=== PATIENT | male | born 1955 | race Caucasian/White ===

== ENCOUNTER 2019-08-23 21:29 | Observation (INO) | payer MEDICARE, MEDICAID, SELFPAY ==
[2019-08-23] VITALS (37 sets, daily range): BP systolic 105–138; BP diastolic 58–80; PULSE 62–91; RESP 14–26; TEMP 36.7; O2SAT 90–97
--- NOTE | 2019-08-23 21:39 | W.ED.GENAD ---
Discharge Plan Disposition Patient Disposition: [facility] INPATIENT Condition: Stable Discharge Details Chief Complaint: Chest Pain Clinical Impression: Chest pain Primary Care Provider: Candido Francis ED Provider: Jayro August Medical Decision Making 64-year-old male with no past medical history likely secondary to no physician evaluation in the past. He smokes, and he has a family history of massive myocardial infarctions at the age of 55 and his brother and his father. He presents for syncope and chest pain. Patient was ice fishing 1 hour ago when he passed out and after that he had notable tightness and pressure in his chest. Denies any tearing sensation. Exam is unremarkable. EKG shows minimal nonspecific less than a millimeter ST elevation in V1 V2 and V3. No evidence of STEMI. Symptoms are certainly concerning for cardiac etiology. Differential also includes dissection versus PE with his syncope. However he likely had a syncopal episode secondary to what I would suspect would be a cardiac dysrhythmia. Will monitor closely, evaluate for these acute etiologies, and recommend admission. Bedside limited ultrasound demonstrates no evidence of significant pericardial effusion. Aortic root does not appear dilated. Mild global hypokinesis although this is very minimal. However no evidence of focal hypokinetic components. [place] and base contract well. 11:19 PM Chest pain has completely resolved with nitroglycerin administration, laboratory work-up is relatively unremarkable. TSH is elevated, free T4 slightly low. Troponin less than 0.05. CTA negative for acute process. This time with the patient's chest pain that resolved with nitroglycerin as well as a subtle EKG abnormalities that resolved with nitroglycerin in conjunction with his strong family history, elevated heart score, I do feel that he would benefit from admission, serial troponins, and reassessment. Discussed the case with the hospitalist Dr. Motley. I have extensively reviewed the treatment plan with the patient. I have addressed all patient concerns at this time. I have also discussed the plan with the admitting physician and they agree with the current assessment and plan and have agreed to assume responsibility for the patient. All parties demonstrate verbal understanding and agreement with our assessment and plan at this time. EKG 21: 37 Sinus rhythm, rate 70, intervals normal, less than a millimeter of elevation in V1 and V2, and just barely 1 mm of elevation in V3. Inverted T wave present in aVR with minimal ST elevation less than 1 mm as well. No criteria in meeting evidence of STEMI EKG 22: 29 Rate 79, intervals normal, sinus rhythm, previous minimal ST segment elevations have seemed to resolve after nitroglycerin administration. No evidence of STEMI. FINDINGS: Lungs: Mild chronic interstitial prominence/peribronchial thickening No consolidation. Pleural space: Unremarkable. No pleural effusion. No pneumothorax. Heart/Mediastinum: Unremarkable. No cardiomegaly. Bones/joints: Unremarkable. IMPRESSION: Question mild bronchitis No radiographic evidence for pneumonia Thank you for allowing us to participate in the care of your patient. Dictated and Authenticated by: Tomasz Brunson MD 08/23/2019 9:52 PM Eastern Time ([place] & [place]) FINDINGS: Pulmonary arteries: No pulmonary emboli. Aorta: No aortic aneurysm. No aortic dissection. Lungs: Mild subsegmental atelectasis versus scarring No consolidation. No masses. Pleural space: No pneumothorax. No pleural effusion. Heart: No cardiomegaly. No pericardial effusion. Lymph nodes: No enlarged lymph nodes. Bones/joints: No acute fracture. Soft tissues: Unremarkable. IMPRESSION: No pulmonary emboli observed Thank you for allowing us to participate in the care of your patient. Dictated and Authenticated by: Tomasz Brunson MD HPI General Date/Time Provider Initiated Documentation: 08/23/19 21:32. HPI Narrative: This is a 64-year-old male with no past medical history likely secondary to lack of physician evaluation who presents today for evaluation of chest pain and syncope. Patient was ice fishing and while sitting there he passed out then when he came to he described notable chest tightness. Symptoms began at 830 which was 1 hour prior to arrival. Currently he admits to tightness in his chest, but denies any arm neck shoulder or head pain. He denies any tearing sensation in his chest. He does smoke. Family history is positive for myocardial infarction for both his father and his brother at the age of 55. He denies any other complaints or modifying factors at this time. He denies any other previous history. He does state that he has had no shortness of breath or exertional chest pain over the last few weeks. Related Data Allergies Allergy/AdvReac Type Severity Reaction Status Date / Time Sulfa (Sulfonamide Allergy Intermediate Rash Unverified 08/23/19 21:42 Antibiotics) General Stated Complaint: Chest Pain RASTA: 2 Review of Systems All systems reviewed & are unremarkable except as noted in HPI and below Exam Narrative Exam Narrative: 1.Const: Well-nourished, Well-developed, appearing stated age 2.Eyes: PERRL, no conjunctival injection, and symmetrical lids. 3.ENT: Atraumatic external nose and ears. Moist MM. Neck: Symmetric, trachea midline, No thyromegaly. 4.CVS: +S1/S2, No murmurs or gallops. Peripheral pulses 2+ and equal in all extremities. Brisk capillary refill in all extremities. Radial pulses +2 bilaterally. 5.RESP: Unlabored respiratory effort. Clear to auscultation bilaterally. No wheezes rales or rhonchi 6.GI: Soft, Nontender/Nondistended, No hepatosplenomegaly. No guarding or rebound. 7.MSK: Normocephalic/Atraumatic, Extremities w/o deformity or ttp No cyanosis or clubbing, Normal movement of all extremities 8.Skin: Warm, Dry. No rashes or lesions. 9.Neuro: dural mechanic II-XII grossly intact. Sensation grossly intact, no focal neurologic deficits. All 6 cardinal planes of vision are fully intact. No evidence of rotatory or vertical nystagmus. The patient demonstrated a normal vnyrpf-fzvx-hbiene, good dexterity. There was no evidence of dysdiadochokinesia. Patient was able to ambulate without difficulty. There was no wide-based gait. Sensation was intact bilaterally as well as muscle strength bilaterally for all extremities. Patient was able to verbalize butter cup with no slurring, or miss pronunciation. 10.Psych: (AAO) x3. Appropriate mood and affect
--- NOTE | 2019-08-23 21:44 | DI.RAD_ITS ---
EXAM: XR PORTABLE CHEST AP CLINICAL HISTORY: chest pain and syncope. TECHNIQUE: 2D digital imaging was performed. COMPARISON: LEFT RIBS TO INCLUDE CXR from 10/05/2009 FINDINGS: LUNGS: Clear. No pleural abnormality seen. HEART: Normal. MEDIASTINUM: Normal. OTHER FINDINGS: None. IMPRESSION: No acute pulmonary findings.
[2019-08-23] MEDS: Normal Saline 500 ML IV (21:50)
--- NOTE | 2019-08-23 21:52 | DI.VRAD_ITS ---
PROCEDURE INFORMATION: Exam: XR Chest, 1 View Exam date and time: 08/23/2019 9:48 PM Age: 64 years old Clinical indication: Type not specified; Patient HX: Chest pain and syncope TECHNIQUE: Imaging protocol: XR of the chest Views: 1 view. COMPARISON: No relevant prior studies available. FINDINGS: Lungs: Mild chronic interstitial prominence/peribronchial thickening No consolidation. Pleural space: Unremarkable. No pleural effusion. No pneumothorax. Heart/Mediastinum: Unremarkable. No cardiomegaly. Bones/joints: Unremarkable. IMPRESSION: Question mild bronchitis No radiographic evidence for pneumonia Dictated and Authenticated by: Tomasz Brunson MD. Ordering:NYASIA Dial MD
[2019-08-23 21:53] LABS: Abs Immature Grans 0.03 k/cumm (0.0-0.09); Absolute Basophil Count 0.04 k/cumm (0.0-0.2); Absolute Eosinophil Count 0.28 k/cumm (0.0-0.7); Absolute Lymphocyte Count 2.35 k/cumm (1.2-3.4); Absolute Monocyte Count 0.97 k/cumm (0.11-0.7); Absolute Neutrophil Count 8.13 k/cumm (1.2-6.7); Basophils % 0.3; Eosinophils % 2.4; HGB 15.9 g/dL (13.5-17.5); Immature Grans % 0.3 %; Lymphocytes % 19.9; Mean Corp. HGB Concentration 33.8 g/dL (32.0-36.0); Mean Corpuscular Hemoglobin 30.1 pg (27.0-33.0); Mean Platelet Volume 8.8 fL (8.0-11.0); Monocytes % 8.2; Neutrophils % 68.9; Platelet Count 552 x1000/uL (130-400); RBC 5.28 m/cumm (4.50-6.00); RBC Distribution Width 14.9 % (11.8-14.1)
[2019-08-23 22:10] LABS: Troponin I < 0.05 ng/Ml (<0.06)
[2019-08-23 22:13] LABS: ALT 29 U/L (16-63); AST 28 U/L (15-37); Albumin 3.8 g/dL (3.4-5.0); Alkaline Phosphatase 81 U/L (46-116); Anion Gap 7.7 mmol/L (3-11); BUN 16 mg/dL (7-18); Bilirubin, Total 0.4 mg/dL (0.2-1.0); CO2 31.3 mmol/L (21.0-32.0); CREATININE 0.91 mg/dL (0.70-1.30); Calcium 9.2 mg/dL (8.5-10.1); Chloride 102 mmol/L (98-107); Glucose 97 mg/dL (74-106); NT-proBNP 192 pg/mL (<300); Potassium 3.9 mmol/L (3.5-5.1); Sodium 141 mmol/L (136-145); TSH (W/Ref FT4) 6.94 uIU/mL (0.36-3.74); Total Protein 7.6 g/dL (6.4-8.2)
[2019-08-23] MEDS: Aspirin 81 MG CHEW 324 MG CH (22:16)
[2019-08-23 22:20] LABS: PTT Activated 24.7 sec (21.0-31.4); Prothrombin Time 10.3 sec (9.3-11.0)
[2019-08-23] MEDS: Omnipaque 350 MG/ML 100 ML BTL IJ (22:20)
--- NOTE | 2019-08-23 22:25 | DI.CT_ITS ---
EXAM: CT CHEST PE CTA CLINICAL HISTORY: CP and Syncpoe, r/o PE vs dissection. TECHNIQUE: Imaging Protocol: Axial CT angiography was performed with multi-slice acquisition and mu lti-planar and/or 3D reconstructions. CONTRAST MATERIAL: Intravenous: Omnipaque 350 Contrast volume:75 mL COMPARISON: No exams were available for comparison FINDINGS: Pulmonary Arteries: No evidence of filling defect to suggest pulmonary emboli. Tracheobronchial tree: Patent where visualized. Mediastinum and Vilma: No dominant adenopathy or fluid collection. Pulmonary parenchyma: No consolidation or dominant measurable mass. No architectural distortion. Depe ndent atelectatic changes. Pleura: No effusion or pneumothorax. Heart: The heart is not dilated. Coronary artery calcifications are present. No pericardial effusion or evidence of right ventricular dysfunction. Aorta: No aneurysm or dissection. Upper abdomen: Unremarkable. Bones: Normal. IMPRESSION: No evidence of pulmonary embolism, thoracic aortic dissection or aneurysm. DATA REPOSITORY: All CT scans at this facility are submitted to the National Radiology Data Registry (NRDR) Dose Index Registry (DIR) with the [employer] (ACR). RADIATION OPTIMIZATION: All CT scans at this facility use at least one of these dose optimization te chniques: automated exposure control; mA and/or kV adjustment per patient size (includes targeted exa ms where dose is matched to clinical indication); or iterative reconstruction.
[2019-08-23 22:33] LABS: FREE T4 0.75 ng/dL (0.76-1.46)
--- NOTE | 2019-08-23 22:57 | DI.VRAD_ITS ---
PROCEDURE INFORMATION: Exam: CT Angiography Chest With Contrast Exam date and time: 08/23/2019 10:41 PM Age: 64 years old Clinical indication: Left-sided chest pain; Patient HX: Chest pain and syncope; Per PT: Happened while ice-fishing TECHNIQUE: Imaging protocol: Computed tomographic angiography of the chest with intravenous contrast. 3D rendering: MIP and/or 3D reconstructed images were created by the technologist. COMPARISON: XR PORTABLE CHEST AP 08/23/2019 9:44 PM FINDINGS: Pulmonary arteries: No pulmonary emboli. Aorta: No aortic aneurysm. No aortic dissection. Lungs: Mild subsegmental atelectasis versus scarring No consolidation. No masses. Pleural space: No pneumothorax. No pleural effusion. Heart: No cardiomegaly. No pericardial effusion. Lymph nodes: No enlarged lymph nodes. Bones/joints: No acute fracture. Soft tissues: Unremarkable. IMPRESSION: No pulmonary emboli observed Dictated and Authenticated by: Tomasz Brunson MD. Ordering:NYASIA Dial MD
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
[2019-08-24] VITALS (57 sets, daily range): BP systolic 98–158; BP diastolic 49–92; PULSE 58–99; RESP 12–30; TEMP 36.7–37.3; O2SAT 94–98
[2019-08-24 01:00] LABS: Troponin I < 0.05 ng/Ml (<0.06)
[2019-08-24] MEDS: Nicotine 21 MG/24 HR PATCH TD (02:46)
--- NOTE | 2019-08-24 03:24 | NUR.NOTE ---
0234. Pt had a 10 beat run of VTach at this time. Pt was awake when this RN saw to him. Pt denies chest pain, presssure, or palpitations. Pt is not diaphoretic, he remains afebrile with temp 36.7 at this time HR79 BP 103/62 RR16 and O2sat 94% at this time. Nursing Note:
[2019-08-24] MEDS: Normal Saline Flush 10 ML SYR IVP (06:29)
[2019-08-24 07:28] LABS: Troponin I < 0.05 ng/Ml (<0.06)
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
[2019-08-24 11:46] LABS: Troponin I < 0.05 ng/Ml (<0.06)
[2019-08-24] MEDS: Aspirin E.C. 325 MG TABEC PO (11:46)
--- NOTE | 2019-08-24 12:25 | W.NUTCONSULT ---
Date of service: 08/24/19 Time of Service: 12:25 Nutritional Consult ASSESSMENT: 64 year old male admitted to ICU for chest pain, syncope. BMI wnl. Following regular meal plan with adequate intake. not considered at nutritional risk at this time. MONITORING AND EVALUATION: weight and po intake trends Time Spent in Nutritional Counseling and Treatment: 0 time spent face to face
--- NOTE | 2019-08-24 12:30 | DI.US_ITS ---
APPROVED REPORT EXAM: Comprehensive 2D, Doppler, and color-flow Echocardiogram Patient Location: In-Patient Automated Access Systems Technician: Iesha Givens RDCS (AE) Rhythm: NSR Indications: chest pain V tach Conclusion Left Ventricle : The left ventricle is mildly dilated The left ventricular systolic function is eusebio l. The left ventricular ejection fraction is within the normal range. There is normal left ventricula r wall thickness. There is normal LV segmental wall motion. The left ventricular diastolic function i s normal. LVEF is estimated to be 55-60%. Right Ventricle : The right ventricle is normal size. The right ventricular systolic function appears normal. Atria : Left atrium is mildly dilated. The right atrium size is normal. Aortic Valve : Aortic valve is trileaflet. Aortic valve leaflet tips are mildly sclerotic, but have a dequate excursion. No aortic regurgitation was noted. There is no aortic valvular stenosis. Mitral Valve : Mitral valve leaflets are mildly thickened, but open well. No evidence of mitral valve stenosis. Mild to moderate mitral regurgitation (RF 20%). Tricuspid Valve : Tricuspid valve leaflets are mildly thickened but open well. Mild tricuspid regurgi tation. Great Vessels : The IVC is mildly dilated but collapses >50% with inspiration. Estimated RVSP is 26- 34 mmHg. Mobile mass seen in IVC likely artifact. There is no prior echocardiogram available for comparison. Wall motion Left Ventricle The left ventricle is mildly dilated The left ventricular systolic function is normal. The left ventr icular ejection fraction is within the normal range. There is normal left ventricular wall thickness. There is normal LV segmental wall motion. The left ventricular diastolic function is normal. LVEF is estimated to be 55-60%. Right Ventricle The right ventricle is normal size. The right ventricular systolic function appears normal. Atria Left atrium is mildly dilated. The right atrium size is normal. Aortic Valve Aortic valve is trileaflet. Aortic valve leaflet tips are mildly sclerotic, but have adequate excursi on. There is no aortic valvular stenosis. No aortic regurgitation was noted. Mitral Valve Mitral valve leaflets are mildly thickened, but open well. No evidence of mitral valve stenosis. Mild to moderate mitral regurgitation (RF 20%). Tricuspid Valve Tricuspid valve leaflets are mildly thickened but open well. Mild tricuspid regurgitation. Pulmonic Valve Pulmonic valve leaflets are mildly thickened. There is no pulmonic valvular stenosis. Trace pulmonic regurgitation. Great Vessels The aortic root is normal in size. The IVC is mildly dilated but collapses >50% with inspiration. Est imated RVSP is 26-34 mmHg. Mobile mass seen in IVC likely artifact. Pericardium There is no pericardial effusion. 2D Dimensions IVSd 0.85 cm M: 0.6-1.2 LV EDV A2C 105.50 mL PWd 1.00 cm M: 0.6 - 1.2 LV EDV A4C 114.40 mL LVDd 5.75 cm M: 4.2 - 5.8 LA Volume Index A2C 30.15 mL/m2 LVDs 4.10 cm M: 2.5 - 4.0 LA Volume Index A4C 38.73 mL/m2 Aortic Root 3.15 cm M: 3.1 - 3.7 LA Volume Index Biplane 35.22 mL/m2 RA Area A4C 17.82 cm2 LA Area A4C 21.31 cm2 LVOT 2.35 cm (M/F) 1.5-2.5 LA Area A2C 19.38 cm2 LVEF (Teich) 53.91 % EF AP4 59.88 % LVEF (Flores's) 57.38 % M: 52 - 72 EF AP2 53.36 % LV Volume 85.48 mL M: 62 - 150 EF BP 57.38 % LV Volume Index 44.06 mL/m2 M: 34 - 74 IVC 2.52 cm FS 28.25 % LV Diastology E/A Ratio 1.0 MED E' 0.08 (>0.07 m/s) LV E/e MED 7.05 (<14) LAT E' 0.10 (>0.1 m/s) LV E/e LAT 5.25 (<14) Pulm Vein s 0.59 m/s PV S/D Ratio 1.04 Pulm Vein d 0.56 m/s Pulm Vein a 0.41 m/s A-A Duration 143.65 msec Aortic Valve LVOT Area 4.37 cm2 LVOT Vmax 1.08 m/s LVOT Mean Marc. 0.79 m/s LVOT Peak Gr. 4.7 mmHg LVOT Mean Gr. 2.7 mmHg AoV Area/ BSA (Vmax) 1.42 cm2/m2 LVOT VTI 0.200 m AoV Vmax 1.70 (0.5-1.3 m/s) JEFFERY Mean Marc. Index 1.50 cm2/m2 AoV Mean Marc. 1.18 m/s AoV Peak Grad 11.6 mmHg AoV Mean Grad 6.1 (<5 mmHg) AoV VTI 0.356 (0.18-0.25 m) AoV Area VTI 2.81 (2.5-4.5 cm2) AoV Area/ BSA (VTI) 1.44 cm/m2 Mitral Valve MV E Max Marc. 0.54 (0.4-1.3 m/s) MV A Velocity 0.55 (0.4-1.3 m/s) E/A Ratio 0.95 MV Decel. Time 287.30 (160-240 msec) MV Regurg Volume 24.62 mL MV PHT 83.33 msec MV RF 19.78 % MVA PHT 2.60 cm2 Pulmonary Valve RVOT Peak Gr. 2.47 mmHg RVOT Peak Marc. 0.79 m/s RVOT Mean Gr. 1.45 mmHg RVOT VTI 0.15 m Tricuspid Valve TR P. Velocity 2.56 m/s TV Regurg Vmax 2.56 m/s RAP Estimate 8.00 mmHg RVSP 34.18 mmHg TR P. Gradient 26.15 mmHg
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
--- NOTE | 2019-08-24 18:23 | W.PM.DS.N ---
DS: Diagnosis Discharge Diagnosis (1) Syncope: Status: Acute Asessment and Plan: Patient is to return to [facility] for 30-day event recorder to follow-up on ventricular arrhythmias and syncope. (2) Chest pain: Status: Acute Asessment and Plan: No further testing is planned regarding his chest pain.Patient has ruled out for an acute myocardial infarction and had a maximal treadmill stress ECG with no arrhythmias and no ischemic symptoms or ischemic ST changes. CTA of his chest failed to show any pulmonary embolus or aneurysm. Patient continues to have symptoms then further testing may be indicated. (3) Ventricular tachycardia: Status: Acute Asessment and Plan: While the patient had 2 distinct episodes of nonsustained ventricular tachycardia he was entirely asymptomatic during these. 30-day event recorder will be ordered to evaluate for any sustained ventricular or supraventricular arrhythmias and to try to correlate with any syncope or near syncopal symptoms. (4) Abnormal findings diagnostic imaging of heart and coronary circulation: Status: Acute Asessment and Plan: Patient had abnormal IVC imaging on his echocardiogram which was read as probable artifact. This needs followed up to rule out an IVC tumor. I will discuss his echo findings with the physician underwriter tomorrow and discuss recommended imaging with radiology. Patient will be called with my recommendations. Discharge Plan Disposition Patient Disposition: HOME Condition: Stable Discharge Details Chief Complaint: Chest Pain Clinical Impression: Chest pain Reason For Visit: CHEST PAIN Admit Date/Time: 08/23/19 23:14 Admit Provider: Jose Luis Motley Attending Provider: Jose Luis Motley Primary Care Provider: Candido Francis ED Provider: Jayro August Hospital Course Hospital Course: 64-year-old male smoker who is otherwise been healthy presented last night with syncope while ice fishing and after having done strenuous work moving diesel oil barrels and moving his uncles automobile. Patient has ruled out for an acute myocardial infarction by negative troponin enzymes. ECG showed no acute ischemic or injury changes. However last night he had a run of nonsustained ventricular tachycardia that lasted for 10 beats at a rate of 115 bpm. He has had another episode this morning of 7 beat run of V. tach for which she was asymptomatic. Patient had a CTA of his chest on admission that showed no pulmonary embolus and no thoracic aortic aneurysm or dissection. Echocardiogram was performed and showed mildly dilated left ventricle with normal left ventricular systolic function with a left ventricular ejection fraction of 55 to 60% with normal LV segmental wall motion. And normal diastolic function. RV size and RV systolic function was normal. There is no significant valvular abnormalities. Tie Carrier did read that there is a mobile mass seen in the IVC that is likely artifact in nature. Unfortunately the physician underwriter was not available for me to discuss these findings. This will be reviewed with the physician underwriter in the morning and further recommendations for follow-up will be made. Patient underwent a gated exercise treadmill stress test without myocardial perfusion imaging achieving a maximal heart rate of 152 bpm or 98% of his predicted maximal heart rate. His resting blood pressure was 152/80 and dada to a peak of 208/80 representing a normal blood pressure response to stress test. His resting ECG was sinus rhythm with no ischemic ST changes. His stress ECG demonstrated sinus tachycardia again with no ischemic ST changes and no arrhythmias. During his recovery. He had no arrhythmias. He exercised for duration of 10 minutes and 20 seconds achieving 4.2 mph at 16% grade with an exercise capacity of 12.38 METS. His Urbano score of 10 estimates an annual cardiovascular mortality of 0% and a 5-year survival of 96%. This was read as low probability for angiographic coronary artery disease. Patient is being discharged home with follow-up with his primary care provider and follow-up testing is recommended including a 30-day event recorder to follow-up on the ventricular arrhythmias and syncope. Further imaging of his IVC will also be recommended such as digital subtraction angiography. These recommendations will be made upon review of his echocardiogram with the physician underwriter and discussion with the radiologist at [facility]. Discharge Instructions Instructions: Cardiac Stress Test (DC) Activity:: Activity as Tolerated Equipment/Supplies:: No Equipment Needed Diet:: normal Discharge Orders Discharge Orders: Discharge Order (Routine); Ordered 08/24/19 Ordered By: Matthew Alvarado Other Ambulatory Orders: Cardiac Event Recorder (Outpt) (ONCE) Timeframe: [id number] Location: None Selected Ordered By: Matthew Alvarado Discharge Data Discharge Date/Time-TO BE ENTERED AT DEPARTURE: 08/24/19 18:53 DS: Summary Status at Discharge Functional status at discharge: independent ambulation Overall status at discharge: patient is back to baseline Mental Status: mental status grossly normal Speech and Movement: speech and movement normal Mood: congruent mood Affect: normal affect Time Spent with Patient providing and/or coordinating discharge services: Greater than 30 minutes Exam Narrative Exam Narrative: Late middle-aged male who appears to be older than his stated age of 64. Sitting up in his chair watching TV in no acute distress. Lungs are clear to auscultation. Heart is regular rate and rhythm without murmur rub or gallop. Extremities without peripheral cyanosis or edema. Psych Mental Status: mental status grossly normal Speech and Movement: speech and movement normal Mood: congruent mood Affect: normal affect DS: Data Vitals/I&O Vitals and I&O: Vital Signs Temperature 37.3 C 08/24/19 16:13 Temperature Source Temporal Artery Scan 08/24/19 16:13 Pulse 90 08/24/19 16:01 Pulse 91 H 08/24/19 16:01 Respiratory Rate 15 08/24/19 16:01 Respiratory Effort 08/24/19 16:13 Respiratory Depth Normal 08/24/19 16:13 Respiratory Pattern Normal 08/24/19 16:13 Blood Pressure 147/79 H 08/24/19 16:01 Blood Pressure Mean 89 08/24/19 16:01 Blood Pressure Position Sitting 08/24/19 08:30 Pulse Oximetry 96 08/24/19 16:01 Oxygen Delivery Method Room Air 08/24/19 08:30 Oxygen Flow Rate 0 08/24/19 08:30 Pain Level 0 08/24/19 16:13 Intake & Output 08/23/19 08/24/19 08/24/19 23:59 11:59 23:59 Intake Total 500 / 500 880 / 1110 230 / 1110 Output Total 1685 / 2085 400 / 2085 Balance 500 / 500 -805 / -975 -170 / -975 Weight 81.647 kg 71.4 kg Intake: IV 500 / 500 Oral 880 / 1110 230 / 1110 Output: Urine 1685 / 2085 400 / 2085 Other: Urine Color Yellow Yellow Urine Appearance Clear Clear Urine Odor Normal Normal Comment pt voids to urinal using urinal at bedside. Dip unremarkable. Voiding Methods Urinal Urinal Data Completed and Pending Labs on day of discharge: Labs from last 24 hours 08/24/19 08/24/19 08/24/19 11:20 06:15 00:33 WBC RBC Hgb Hct MCV MCH MCHC RDW Plt Count MPV Immature Gran % Neutrophils % Lymphocytes % Monocytes % Eosinophils % Basophils % Absolute Neutrophils Absolute Lymphocytes Absolute Monocytes Absolute Eosinophils Absolute Basophils PT INR APTT Sodium Potassium Chloride Carbon Dioxide Anion Gap BUN Creatinine Estimated GFR/1.73 m2 Glucose Calcium Total Bilirubin AST ALT Alkaline Phosphatase Troponin I < 0.05 < 0.05 < 0.05 NT-Pro-B Natriuret Pep Total Protein Albumin TSH Free T4 08/23/19 08/23/19 08/23/19 21:40 21:40 21:40 WBC 11.80 H RBC 5.28 Hgb 15.9 Hct 47.0 MCV 89.0 MCH 30.1 MCHC 33.8 RDW 14.9 H Plt Count 552 H MPV 8.8 Immature Gran % 0.3 Neutrophils % 68.9 Lymphocytes % 19.9 Monocytes % 8.2 Eosinophils % 2.4 Basophils % 0.3 Absolute Neutrophils 8.13 H Absolute Lymphocytes 2.35 Absolute Monocytes 0.97 H Absolute Eosinophils 0.28 Absolute Basophils 0.04 PT 10.3 INR 1.0 APTT 24.7 Sodium Potassium Chloride Carbon Dioxide Anion Gap BUN Creatinine Estimated GFR/1.73 m2 Glucose Calcium Total Bilirubin AST ALT Alkaline Phosphatase Troponin I < 0.05 NT-Pro-B Natriuret Pep Total Protein Albumin TSH Free T4 08/23/19 21:40 WBC RBC Hgb Hct MCV MCH MCHC RDW Plt Count MPV Immature Gran % Neutrophils % Lymphocytes % Monocytes % Eosinophils % Basophils % Absolute Neutrophils Absolute Lymphocytes Absolute Monocytes Absolute Eosinophils Absolute Basophils PT INR APTT Sodium 141 Potassium 3.9 Chloride 102 Carbon Dioxide 31.3 Anion Gap 7.7 BUN 16 Creatinine 0.91 Estimated GFR/1.73 m2 >= 60.00 Glucose 97 Calcium 9.2 Total Bilirubin 0.4 AST 28 ALT 29 Alkaline Phosphatase 81 Troponin I NT-Pro-B Natriuret Pep 192 Total Protein 7.6 Albumin 3.8 TSH 6.94 H Free T4 0.75 L PFSH Surgical History shoulder surgery left Family History Mother Dementia Father Essential hypertension Renal failure Brother MVA (motor vehicle accident) Brother No problems noted. Brother No problems noted. Brother No problems noted. Social History Smoking/Tobacco Use Status: Current every day Tobacco Type: cigarettes Alcohol Intake: never Drug use: Never Substance use type: does not use Do you feel safe at home: Yes Do you feel safe in your relationship?: Yes
== END 2019-08-24 18:53 | disposition home or self-care (01) ==
LOC: ER 23:49 → ICU 08-24 00:50
PROVIDERS: Admitting Provider General Practice; Emergency Provider Student in an Organized Health Care Education/Training Program; PCP Family Medicine; Visit Provider Internal Medicine
DX: R55 Syncope and collapse (principal); R07.9 Chest pain, unspecified; I47.2 Ventricular tachycardia; R93.1 Abnormal findings on diagnostic imaging of heart and coronary circulation; F17.210 Nicotine dependence, cigarettes, uncomplicated; Z23 Encounter for immunization
CPT/HCPCS: 36415; 71275; 80053; 93005; 93016; 93018; 93306; 96360; 96361; 99222; 99226; 99239; 99285; 71045; 83880; 84439; 84443; 84484; 85025; 85610; 85730; 93010; 93017; 99217; 99219; 99284; G0378; J3490

== ENCOUNTER 2019-08-25 09:41 | Outpatient (CLI) | payer MEDICARE, MEDICAID, SELFPAY ==
--- NOTE | 2019-09-27 12:05 | W.CARDEVENT ---
Date of service: 09/27/19 Time of Service: 12:05 Cardiac Event Recorder Cardiac Event Note: The patient was monitored from August 25, 2019 through September 23, 2019 Rhythm throughout was sinus. There was no atrial fibrillation. There was insignificant ventricular ectopy. There was no ventricular tachycardia. There were no pauses or bradycardia dysrhythmias
== END 2019-08-25 10:01 ==
PROVIDERS: PCP Family Medicine; Visit Provider Student in an Organized Health Care Education/Training Program
DX: R55 Syncope and collapse (principal)
CPT/HCPCS: 93270

== ENCOUNTER 2019-08-27 01:54 | Outpatient (CLI) | payer MEDICARE, MEDICAID, SELFPAY ==
--- NOTE | 2019-08-27 08:49 | DI.US_ITS ---
EXAM: US ABDOMEN LIMITED CLINICAL HISTORY: att: IVC; question IVC mass vs. artifact per echo TECHNIQUE: Ultrasound performed using standard protocol. COMPARISON: CT CHEST PE CTA from 08/23/2019 US ECHOCARDIOGRAM from 08/24/2019 FINDINGS: The IVC is well demonstrated on the current exam. No mass or thrombus is identified. The diameter appears normal. The iliac veins are free of thrombus proximally. There is no ascites. The liver ec hogenicity is normal where visualized. IMPRESSION: No evidence of mass or thrombus within the inferior vena cava.
== END 2019-08-27 02:14 ==
PROVIDERS: PCP Family Medicine; Visit Provider Internal Medicine
DX: R93.1 Abnormal findings on diagnostic imaging of heart and coronary circulation (principal); I47.2 Ventricular tachycardia
CPT/HCPCS: 76705

== ENCOUNTER 2019-09-27 12:05 | Outpatient (CLI) | payer MEDICARE, SELFPAY | END 2019-09-27 12:25 | PROVIDERS: PCP Family Medicine; Referring Provider Family Medicine; Visit Provider Internal Medicine Cardiovascular Disease | DX: R55 Syncope and collapse (principal) | CPT/HCPCS: 93228 ==

== ENCOUNTER 2020-02-11 00:43 | Outpatient (CLI) | payer MEDICARE, SELFPAY ==
--- NOTE | 2020-02-11 06:45 | DI.US_ITS ---
EXAM: US AAA SCREENING CLINICAL HISTORY: SCREENING, hx tobacco use, Z87.891 COMPARISON: No exams were available for comparison FINDINGS: Abdominal Aorta: Proximal: 2.9 x 2.9 cm Mid: 2.3 x 2.3 cm Distal: 1.8 x 1.6 cm Iliac's: Right: 0.9 x 0.8 cm Left: 1.1 x 0.8 cm Mild atherosclerotic disease is present. IMPRESSION: No evidence of abdominal aortic aneurysm. DATA REPOSITORY:
== END 2020-02-11 01:03 ==
PROVIDERS: PCP Family Medicine; Visit Provider Family Medicine
DX: Z13.6 Encounter for screening for cardiovascular disorders (principal); Z87.891 Personal history of nicotine dependence; I70.0 Atherosclerosis of aorta
CPT/HCPCS: 76706

== ENCOUNTER 2020-02-11 01:06 | Outpatient (CLI) | payer MEDICARE, SELFPAY ==
[2020-02-11 09:03] LABS: Calculated LDL 170 mg/dL (<100); Cholesterol 236 mg/dL (<200); HDL Cholesterol 44 mg/dL (40-60); TSH (W/Ref FT4) 1.38 uIU/mL (0.36-3.74); Triglyceride 110 mg/dL (<150)
== END 2020-02-11 01:26 ==
PROVIDERS: PCP Family Medicine; Visit Provider Family Medicine
DX: E03.9 Hypothyroidism, unspecified (principal); E78.5 Hyperlipidemia, unspecified; Z13.6 Encounter for screening for cardiovascular disorders; Z87.891 Personal history of nicotine dependence; I70.0 Atherosclerosis of aorta
CPT/HCPCS: 36415; 76706; 80061; 84443

== ENCOUNTER 2021-07-24 14:49 | Outpatient (CLI) | payer MEDICARE, MEDICAID, SELFPAY ==
--- NOTE | 2021-07-24 14:15 | DI.RAD_ITS ---
Exam(s) XR SHOULDER LT COMPLETE 2+V EXAM: XR SHOULDER LT COMPLETE 2+V CLINICAL HISTORY: left shoulder pain. TECHNIQUE: 2D digital imaging was performed of the left shoulder. Three images were obtained. AP a nd axillary views were obtained. COMPARISON: No previous for comparison. FINDINGS: BONES: No acute fracture is present. No bony destructive lesion is seen. JOINTS: No dislocation present. Mild degenerative changes are seen at the acromioclavicular and gleno humeral joints. There is mild spurring of the acromion laterally. There also mild hypertrophic javier ges seen at the greater tuberosity. SOFT TISSUE: Normal. IMPRESSION: Degenerative changes of the left shoulder. DATA REPOSITORY: RADIATION DOSE DELIVERED:
== END 2021-07-24 14:50 | disposition home or self-care (01) ==
LOC: DIORS 14:49
PROVIDERS: PCP Family Medicine; Referring Provider Family Medicine; Visit Provider Student in an Organized Health Care Education/Training Program
DX: M25.512 Pain in left shoulder (principal)
CPT/HCPCS: 99203; 99213; 73030

== ENCOUNTER 2021-08-07 01:55 | Outpatient (CLI) | payer MEDICARE, MEDICAID, SELFPAY ==
--- NOTE | 2021-08-07 07:15 | DI.MRI_ITS ---
Exam(s) MR UPPER JOINT LT WO CLINICAL HISTORY: L SHOULDER PAIN,traumatic tear lt rotator cuff ,s46.012a. TECHNIQUE: Multiplanar multisequence MRI was performed. COMPARISON: None FINDINGS: MR examination of the shoulder was performed according to the usual protocol. There is a moderate effusion of the glenohumeral joint with associated fluid in the subacromial subde ltoid bursa. Bones and labrum: No bony signal abnormality seen. Glenoid labrum appears intact. Moderate hypertrop hic changes present at the acromioclavicular joint and mild marginal osteophyte formation glenoid lab rum and humeral head is noted. Rotator cuff: There is a full-thickness retracted supraspinatus tendon tear, the tear is about 20 mi llimeters in width and there is about 30 millimeters retraction. There is tearing also visible at th e myotendinous junction region of the supraspinatus with multiple smaller intrasubstance and inferior and superior surface tears without a full-thickness tear at this site. Infraspinatus muscle and tendon appear largely intact although there may be minimal insertional teari ng of superior most fibers of the infraspinatus. Subscapularis shows mild insertional tearing at its superior margin period. Biceps tendon and anchor: The biceps tendon is minimally displaced medially from the bicipital groove at its superior aspect. There is markedly abnormal signal of biceps tendon and anchor and there is a probable partial thickness biceps tendon tear at the level of the humeral head. Rotator interval s tructures show multiple areas of abnormal signal period. IMPRESSION: Full-thickness retracted supraspinatus tendon tear, minimal insertional tearing of subscapularis and infraspinatus tendons. Probable non retracted partial thickness biceps tendon tear. DATA REPOSITORY:
== END 2021-08-07 02:15 ==
PROVIDERS: PCP Family Medicine; Visit Provider Student in an Organized Health Care Education/Training Program
DX: M25.512 Pain in left shoulder (principal); M75.122 Complete rotator cuff tear or rupture of left shoulder, not specified as traumatic
CPT/HCPCS: 73221

== ENCOUNTER → 2021-08-15 10:44 | Outpatient (BNVA) | payer MEDICARE, MEDICAID, SELFPAY | PROVIDERS: PCP Family Medicine; Referring Provider Family Medicine; Visit Provider Student in an Organized Health Care Education/Training Program | DX: S46.012A Strain of muscle(s) and tendon(s) of the rotator cuff of left shoulder, initial encounter (principal); X58.XXXA Exposure to other specified factors, initial encounter; M75.22 Bicipital tendinitis, left shoulder; M75.52 Bursitis of left shoulder | CPT/HCPCS: 99214 ==

== ENCOUNTER 2021-09-21 19:11 | Inpatient (IN) | payer MEDICARE, MEDICAID, SELFPAY ==
[2021-09-21] VITALS (130 sets, daily range): BP systolic 110–125; BP diastolic 64–81; PULSE 68–107; RESP 10–31; TEMP 36.6; O2SAT 91–100
--- NOTE | 2021-09-21 19:15 | RT.EKG_ITS ---
APPROVED REPORT Exam: Resting ECG Reason for Exam: syncopal episode Patient Location: E HR:67 bpm ECG Measurements Heart Rate 67 AXIS NM 183 P 65 QRSd 88 QRS 56 QT 402 T 54 QTc 426 Conclusion Sinus rhythm...normal P axis, V-rate 60- 99
--- NOTE | 2021-09-21 19:30 | DI.CT_ITS ---
Exam(s) CT CHEST PE CTA EXAM: CT CHEST PE CTA CLINICAL HISTORY: chest pain. TECHNIQUE: Imaging Protocol: Axial CT angiography was performed with multi-slice acquisition and mu lti-planar and/or 3D reconstructions. CONTRAST MATERIAL: Intravenous: Omnipaque 350 Contrast volume:100 mL COMPARISON: CT CT CHEST PE CTA from 08/23/2019 FINDINGS: The examination is limited due to patient motion artifact. Tracheobronchial tree: Patent where visualized. Pulmonary parenchyma: No consolidation or dominant measurable mass. No architectural distortion. Ther e is dependent atelectasis in the lung bases. Pulmonary Arteries: No evidence of filling defect to suggest pulmonary emboli. Evaluation of the deysi pheral pulmonary arteries is limited due to patient motion artifact. Mediastinum and Vilma: No dominant adenopathy or fluid collection. The esophagus is unremarkable. Visualized thyroid gland: Unremarkable. Pleura: No effusion or pneumothorax. Heart: The heart is not dilated. Coronary artery calcifications are present. No pericardial effusion . Aorta: Thoracic aorta non-dilated. No evidence of dissection. Atherosclerosis. Upper abdomen: Stable bilateral adrenal nodularity. Soft tissues: Unremarkable. Bones: Within normal limits for the patient's age. IMPRESSION: No evidence of pulmonary embolism, thoracic aortic dissection or aneurysm within the limitations of t he examination. RADIATION DOSE DELIVERED: 294.46mGy.cm Total DLP DATA REPOSITORY: All CT scans at this facility are submitted to the National Radiology Data Registry (NRDR) Dose Index Registry (DIR) with the [employer] (A[employer]). RADIATION OPTIMIZATION: All CT scans at this facility use at least one of these dose optimization te chniques: automated exposure control; mA and/or kV adjustment per patient size (includes targeted exa ms where dose is matched to clinical indication); or iterative reconstruction.
[2021-09-21 19:50] LABS: Abs Immature Grans 0.06 10^3/uL (0.0-0.06); Absolute Basophil Count 0.11 10^3/uL (0.0-0.2); Absolute Eosinophil Count 0.26 10^3/uL (0.0-0.7); Absolute Lymphocyte Count 1.24 10^3/uL (1.2-3.4); Absolute Monocyte Count 0.85 10^3/uL (0.1-0.8); Absolute Neutrophil Count 8.92 10^3/uL (1.2-6.7); Eosinophils % 2.3; HCT 49.1 % (40.0-50.0); HGB 15.9 g/dL (13.5-17.5); Immature Grans % 0.5; Lymphocytes % 10.8; MCH 28.2 pg (27.0-33.0); MCHC 32.4 % (32.0-36.0); MCV 87.2 fL (80-95); Monocytes % 7.4; Nucleated RBC 0 %; Platelet Count 582 10^3/uL (130-400); RBC 5.63 10^6/uL (4.36-5.78); RDW 15.9 % (11.8-14.1); RDW-SD 50.9 fL; WBC 11.44 10^3/uL (4.4-10.8)
[2021-09-21 20:11] LABS: ALT 25 U/L (16-63); AST 30 U/L (15-37); Albumin 3.9 g/dL (3.4-5.0); Alkaline Phosphatase 79 U/L (46-116); Anion Gap 5.4 mmol/L (3-11); BUN 34 mg/dL (7-18); Bilirubin, Total 0.4 mg/dL (0.2-1.0); CO2 28.6 mmol/L (21.0-32.0); CREATININE 1.2 mg/dL (0.70-1.30); Chloride 100 mmol/L (98-107); Glucose 91 mg/dL (74-106); Potassium 4.1 mmol/L (3.5-5.1); Sodium 134 mmol/L (136-145); Total Protein 7.9 g/dL (6.4-8.2); Troponin I < 50 ng/L (<or=60)
--- NOTE | 2021-09-21 21:06 | W.ED.GENAD ---
Discharge Plan Disposition Patient Disposition: [facility] INPATIENT Condition: Serious Discharge Details Chief Complaint: Dizzy/Sync Clinical Impression: Syncope Primary Care Provider: Rhett Garrett ED Provider: Phillip Goodman Home Meds and New Rx's Prescriptions: No Action aspirin 81 mg capsule 81 mg PO DAILY 0RF Medical Decision Making 2148 -- 66-year-old male here after syncopal episode x2 that occurred just prior to arrival. Patient had chest discomfort after episodes. Patient currently hemodynamically stable with no concerning findings on exam. EKG was reviewed and interpreted by me to assess for arrhythmia: Sinus rhythm 67 bpm, normal intervals, no delta wave, no signs of Brugada, please see report. Plan for CT of the chest to assess for acute pulmonary embolism. Labs reviewed and initial troponin negative. No significant electrolyte abnormalities. 2219 --CTA of the chest was interpreted by radiology: No main or lobar pulmonary embolism. I called and spoke with Dr. Rosario, on-call hospitalist, discussed ED presentation and course, he will admit the patient. HPI General Mode of arrival: ambulatory. Date/Time Provider Initiated Documentation: 09/21/21 19:28. Limitations to Documentation: no limitations. Information obtained by: patient. HPI Narrative: 66-year-old male presents with chief complaint of syncope. Patient notes he was ice fishing and experienced a brief syncopal episode. This was witnessed by a friend. He then had another brief episode shortly thereafter. He did not strike his head. Patient notes after the episodes he has had some mild chest discomfort. Syncopal episodes were severe. No associated shortness of breath. No associated seizure activity. Prior to episodes patient notes she is feeling well today. Patient states that he had similar when ice fishing a couple years. Related Data Home Medications Medication Instructions Recorded Confirmed aspirin 81 mg capsule 81 mg PO DAILY 08/15/21 09/21/21 Allergies Allergy/AdvReac Type Severity Reaction Status Date / Time Sulfa (Sulfonamide Allergy Intermediate Rash Verified 08/15/21 10:49 Antibiotics) General Stated Complaint: Dizzy/Sync RASTA: 2 Review of Systems Constitutional Constitutional: Denies fever(s) Cardiovascular Cardiovascular: Reports as per HPI and Denies dyspnea Respiratory Respiratory: Denies dyspnea PFSH All Active Problems (Updated 09/21/21 @ 22:21 by Phillip Goodman MD) Syncope (Chronic) Bursitis of left shoulder (Acute) Tendinitis of long head of biceps brachii of left shoulder (Acute) Traumatic tear of left rotator cuff (Acute ~04/2021) Dyshidrotic foot dermatitis (Acute) Erectile dysfunction (Acute) Right shoulder pain (Acute) History of tobacco use (Acute) Abnormal findings diagnostic imaging of heart and coronary circulation (Acute) Ventricular tachycardia (Acute) Chest pain (Acute) Syncope (Acute) Medical History Dental caries (10/23/17) Surgical History shoulder surgery left Family History Mother Dementia Father Essential hypertension Renal failure Brother MVA (motor vehicle accident) Brother No problems noted. Brother No problems noted. Brother No problems noted. Social History Smoking/Tobacco Use Status: Former Tobacco Use Tobacco: How many years used: 35 Smoking risk assessment performed?: Yes Alcohol Intake: never Drug use: Never Substance use type: does not use Current gender identity: male Do you feel safe at home: Yes Do you feel safe in your relationship?: Yes Exam Const General: cooperative and no acute distress HENMT Mouth: moist mucous membranes Eyes Conjunctivae: normal conjunctivae Sclera: normal sclerae EOM: EOM intact bilaterally Neck Neck: trachea midline and supple Resp Auscultation: clear to auscultation bilaterally, no rales, no rhonchi and no wheezes Cardio Jugular venous pressure: no JVD Rate: regular rate and not tachycardic Rhythm: regular rhythm GI Palpation: soft, not firm, no guarding, no masses, not rigid and nontender Skin General skin exam: no rashes or lesions noted Neuro General: patient alert, patient awake, patient oriented x3 and tone normal Extrem General: no edema Psych Appearance: grossly normal Mental Status: mental status grossly normal Speech and Movement: speech and movement normal Course Vital Signs Vital signs: Vital Signs Temperature 36.6 C 09/21/21 19:15 Pulse 76 09/21/21 19:15 Respiratory Rate 18 09/21/21 19:15 Blood Pressure 113/70 09/21/21 19:15 Pulse Oximetry 96 09/21/21 19:15 Temperature 36.6 C 09/21/21 19:15 Temperature Source Oral 09/21/21 19:15 Pulse 76 09/21/21 19:15 Respiratory Rate 18 09/21/21 19:15 Respiratory Effort 09/21/21 19:31 Blood Pressure 113/70 09/21/21 19:15 Blood Pressure Position Sitting 09/21/21 19:15 Pulse Oximetry 96 09/21/21 19:15 Oxygen Delivery Method Room Air 09/21/21 19:15 Oxygen Flow Rate 0 09/21/21 19:15 Pain Level 4 09/21/21 19:15 Lab/Test Results Lab/Test Results: Laboratory Tests Range/Units 09/21/21 09/21/21 19:30 19:30 WBC (4.4-10.8) 10^3/uL 11.44 H RBC (4.36-5.78) 10^6/uL 5.63 Hgb (13.5-17.5) g/dL 15.9 Hct (40.0-50.0) % 49.1 MCV (80-95) fL 87.2 MCH (27.0-33.0) pg 28.2 MCHC (32.0-36.0) % 32.4 RDW (11.8-14.1) % 15.9 H Plt Count (130-400) 10^3/uL 582 H MPV (8.0-11.0) fL 9.0 Immature Gran % 0.5 Neutrophils % 78.0 Lymphocytes % 10.8 Monocytes % 7.4 Eosinophils % 2.3 Basophils % 1.0 Nucleated RBC % % 0 Absolute Neutrophils (1.2-6.7) 10^3/uL 8.92 H Absolute Lymphocytes (1.2-3.4) 10^3/uL 1.24 Absolute Monocytes (0.1-0.8) 10^3/uL 0.85 H Absolute Eosinophils (0.0-0.7) 10^3/uL 0.26 Absolute Basophils (0.0-0.2) 10^3/uL 0.11 Sodium (136-145) mmol/L 134 L Potassium (3.5-5.1) mmol/L 4.1 Chloride (98-107) mmol/L 100 Carbon Dioxide (21.0-32.0) mmol/L 28.6 Anion Gap (3-11) mmol/L 5.4 BUN (7-18) mg/dL 34 H Creatinine (0.70-1.30) mg/dL 1.2 Estimated GFR/1.73 m2 (mL/min/1.73m2) >= 60.00 Glucose (74-106) mg/dL 91 Calcium (8.5-10.1) mg/dL 9.0 Total Bilirubin (0.2-1.0) mg/dL 0.4 AST (15-37) U/L 30 ALT (16-63) U/L 25 Alkaline Phosphatase (46-116) U/L 79 Troponin I (<or=60) ng/L < 50 Total Protein (6.4-8.2) g/dL 7.9 Albumin (3.4-5.0) g/dL 3.9 PAWSS Have you Been Recently Intoxicated or Drunk Within the Last 30 days?: No Have you Ever Experienced Previous Episodes of Alcohol Withdrawal?: No Have you ever Experienced Withdrawal Seizures?: No Have you ever Experienced Delirium Tremens(DT)s?: No Have you ever undergone Alcohol Rehabilitation Treatment (i.e, inpt ot outpatient treatment programs)?: No Have you ever Experienced Blackouts?: No Have you ever Combined Alcohol with any other Substance of Abuse during the last 90 days?: No Positive Blood Alcohol level on Presentation? [PCS.BAL]: No Evidence of Increased Autonomic Activity (i.e. HR>120, tremor, sweating, agitation, nausea)?: No Result: 0
[2021-09-21] MEDS: Omnipaque 350 MG/ML 100 ML BTL IJ (21:22)
[2021-09-21] MEDS: Normal Saline Flush 10 ML SYR IVP (21:23)
--- NOTE | 2021-09-21 21:54 | DI.VRAD_ITS ---
PROCEDURE INFORMATION: Exam: CTA Chest With Contrast Exam date and time: 09/21/2021 7:42 PM Age: 66 years old Clinical indication: Pain; Chest pressure TECHNIQUE: Imaging protocol: Computed tomographic angiography of the chest with contrast. 3D rendering (Not supervised by radiologist): MIP and/or 3D reconstructed images were created by the technologist. Total images: 1954 Contrast material: OMNIPAQUE; Contrast volume: 100 ml; Contrast route: INTRAVENOUS (IV); COMPARISON: CT CHEST PE CTA 08/23/2019 10:25 PM FINDINGS: Pulmonary arteries: No main or lobar pulmonary arterial embolism. Limited evaluation of the segmental branches. Aorta: Atherosclerosis. No aortic aneurysm. Lungs: Unremarkable. No consolidation. No masses. Pleural spaces: Unremarkable. No pneumothorax. No pleural effusion. Heart: Unremarkable. No cardiomegaly. No pericardial effusion. Lymph nodes: Unremarkable. No enlarged lymph nodes. Bones/joints: Unremarkable. No acute fracture. Soft tissues: Unremarkable. Other findings: Images are degraded by patient respiratory motion artifact. IMPRESSION: No main or lobar pulmonary embolism. Dictated and Authenticated by: Dina Loving MD. Ordering:TREMAINE Fisher MD
--- NOTE | 2021-09-21 22:31 | W.PM.HP.N ---
Date of service: 09/21/21 Time of Service: 22:31 History of Present Illness History of Present Illness Chief Complaint: This is a 66 yo male with a PMH of syncopal episode, tobacco use disorder, PFSH All Active Problems (Updated 09/21/21 @ 22:21 by Phillip Goodman MD) Syncope (Chronic) Bursitis of left shoulder (Acute) Tendinitis of long head of biceps brachii of left shoulder (Acute) Traumatic tear of left rotator cuff (Acute ~04/2021) Dyshidrotic foot dermatitis (Acute) Erectile dysfunction (Acute) Right shoulder pain (Acute) History of tobacco use (Acute) Abnormal findings diagnostic imaging of heart and coronary circulation (Acute) Ventricular tachycardia (Acute) Chest pain (Acute) Syncope (Acute) Medical History Dental caries (10/23/17) Surgical History shoulder surgery left Family History Mother Dementia Father Essential hypertension Renal failure Brother MVA (motor vehicle accident) Brother No problems noted. Brother No problems noted. Brother No problems noted. Social History Smoking/Tobacco Use Status: Former Tobacco Use Tobacco: How many years used: 35 Smoking risk assessment performed?: Yes Alcohol Intake: never Drug use: Never Substance use type: does not use Current gender identity: male Do you feel safe at home: Yes Do you feel safe in your relationship?: Yes Meds Allergies and Home Medications Allergies Allergy/AdvReac Type Severity Reaction Status Date / Time Sulfa (Sulfonamide Allergy Intermediate Rash Verified 08/15/21 10:49 Antibiotics) Home Medications Medication Instructions Recorded Confirmed Type aspirin 81 mg capsule 81 mg PO DAILY 08/15/21 09/21/21 History Results Labs Result diagrams: 09/21/21 19:30 09/21/21 19:30 Labs: Laboratory Results - last 24 hr 09/21/21 09/21/21 19:30 19:30 WBC 11.44 H RBC 5.63 Hgb 15.9 Hct 49.1 MCV 87.2 MCH 28.2 MCHC 32.4 RDW 15.9 H Plt Count 582 H MPV 9.0 Immature Gran % 0.5 Neutrophils % 78.0 Lymphocytes % 10.8 Monocytes % 7.4 Eosinophils % 2.3 Basophils % 1.0 Nucleated RBC % 0 Absolute Neutrophils 8.92 H Absolute Lymphocytes 1.24 Absolute Monocytes 0.85 H Absolute Eosinophils 0.26 Absolute Basophils 0.11 Sodium 134 L Potassium 4.1 Chloride 100 Carbon Dioxide 28.6 Anion Gap 5.4 BUN 34 H Creatinine 1.2 Estimated GFR/1.73 m2 >= 60.00 Glucose 91 Calcium 9.0 Total Bilirubin 0.4 AST 30 ALT 25 Alkaline Phosphatase 79 Troponin I < 50 Total Protein 7.9 Albumin 3.9 Last Vital Signs Temp 36.6 C 09/21/21 19:15 Pulse 81 09/21/21 21:41 Resp 17 09/21/21 21:45 BP 114/65 09/21/21 21:41 Pulse Ox 97 09/21/21 21:45 PAWSS Have you Been Recently Intoxicated or Drunk Within the Last 30 days?: No Have you Ever Experienced Previous Episodes of Alcohol Withdrawal?: No Have you ever Experienced Withdrawal Seizures?: No Have you ever Experienced Delirium Tremens(DT)s?: No Have you ever undergone Alcohol Rehabilitation Treatment (i.e, inpt ot outpatient treatment programs)?: No Have you ever Experienced Blackouts?: No Have you ever Combined Alcohol with any other Substance of Abuse during the last 90 days?: No Positive Blood Alcohol level on Presentation? [PCS.BAL]: No Evidence of Increased Autonomic Activity (i.e. HR>120, tremor, sweating, agitation, nausea)?: No Result: 0
[2021-09-21 22:38] LABS: Lab Add On Test DONE
[2021-09-21 22:53] LABS: Troponin I < 50 ng/L (<or=60)
--- NOTE | 2021-09-21 23:13 | NUR.NOTE ---
Ronni Keenan [phone].Nursing Note:
[2021-09-21 23:36] LABS: COVID-19 PCR Negative (Negative)
[2021-09-22] VITALS (13 sets, daily range): BP systolic 104–143; BP diastolic 60–79; PULSE 57–83; RESP 16–22; TEMP 36–36.7; O2SAT 91–98
[2021-09-22] LABS: Source Nasopharynx
--- NOTE | 2021-09-22 00:50 | W.PM.HP.N ---
Date of service: 09/22/21 Time of Service: 00:50 Assessment and Plan Assessment and plan (1) Syncope: Status: Chronic Assessment and plan: Likely vasovagal. Had a similar incident in 08/2019 under the same conditions (while ice fishing). Telemetry. IV hydration. Orthostatic BP readings in the AM. (2) History of tobacco use: Status: Acute Assessment and plan: Nicoderm patch prn. (3) Chest pain: Status: Acute Assessment and plan: Mild; following the second syncopal episode. Trop neg x 2. Questionably could have contused chest. Qualifiers: Chest pain type: precordial pain Qualified Code(s): R07.2 - Precordial pain History of Present Illness History of Present Illness Chief Complaint: Syncope Narrative: This is a 66 yo male with a PMH of syncopal episode, tobacco use syndrome, Vtach. He presented to the ED after 2 syncopal episodes just prior to arrival. He was ice fishing with 2 friends. He had been sitting quietly then began to feel hot and sweaty so he left the robe and went outside where he promptly passed out. He denies hitting his head. He regained consciousness readily and sat on a snow machine. When he then stood back up he had another syncopal episode. His friends witnessed the episodes and reported no seizure-like movements. He regained consciousness and was brought to the ED. He had no CP or palpitations prior to the episodes but did have mild left sided CP after the second event. He had been feeling well prior to the episodes. He had a syncopal episode in 2019 while ice fishing. W/U then included cardiac monitoring that was negative. He also had a negative cardiac exercise stress test. His troponin was negative. Lab unremarkable other than a creatinine of 1.2 (0.9 in Aug 2019). CTA chest was unremarkable; no pulmonary embolism. EKG showed sinus rhythm with rate of 67. Admitted for observation / cardiac monitoring. Review of Systems All systems reviewed & are unremarkable except as noted in HPI and below PFSH All Active Problems Syncope (Chronic) Bursitis of left shoulder (Acute) Tendinitis of long head of biceps brachii of left shoulder (Acute) Traumatic tear of left rotator cuff (Acute ~04/2021) Dyshidrotic foot dermatitis (Acute) Erectile dysfunction (Acute) Right shoulder pain (Acute) History of tobacco use (Acute) Abnormal findings diagnostic imaging of heart and coronary circulation (Acute) Ventricular tachycardia (Acute) Chest pain (Acute) Syncope (Acute) Medical History Dental caries (10/23/17) Surgical History shoulder surgery left Family History Mother Dementia Father Essential hypertension Renal failure Brother MVA (motor vehicle accident) Brother No problems noted. Brother No problems noted. Brother No problems noted. Social History Smoking/Tobacco Use Status: Former Tobacco Use Tobacco: How many years used: 35 Smoking risk assessment performed?: Yes Alcohol Intake: never Drug use: Never Substance use type: does not use Current gender identity: male Do you feel safe at home: Yes Do you feel safe in your relationship?: Yes Meds Allergies and Home Medications Allergies Allergy/AdvReac Type Severity Reaction Status Date / Time Sulfa (Sulfonamide Allergy Intermediate Rash Verified 08/15/21 10:49 Antibiotics) Home Medications Medication Instructions Recorded Confirmed Type aspirin 81 mg capsule 81 mg PO DAILY 08/15/21 09/21/21 History Exam Const General: cooperative and no acute distress Nutritional Appearance: thin Orientation: alert and oriented x3 HENMT Head: normocephalic and atraumatic Ears: hearing grossly normal bilaterally Eyes General: appearance normal, both eyes and all related structures Sclera: sclerae normal Chest Chest: no tenderness Resp Effort & Inspection: normal respiratory effort Auscultation: clear to auscultation bilaterally and diminished lung sounds Cardio Rate: regular rate Rhythm: regular rhythm Heart Sounds: S1 normal and S2 normal GI Palpation: soft and nontender Auscultation: normal bowel sounds Skin General skin exam: no rashes or lesions noted Neuro General: no focal motor deficits Cranial Nerves: facial strength normal Cognition: normal cognition Speech: speech normal Extrem General: no pedal edema and no calf tenderness Psych Appearance: grossly normal Speech and Movement: speech and movement normal Affect: normal affect Results Labs Result diagrams: 09/21/21 19:30 09/21/21 19:30 Labs: Laboratory Results - last 24 hr 09/21/21 09/21/21 09/21/21 19:30 19:30 22:32 WBC 11.44 H RBC 5.63 Hgb 15.9 Hct 49.1 MCV 87.2 MCH 28.2 MCHC 32.4 RDW 15.9 H Plt Count 582 H MPV 9.0 Immature Gran % 0.5 Neutrophils % 78.0 Lymphocytes % 10.8 Monocytes % 7.4 Eosinophils % 2.3 Basophils % 1.0 Nucleated RBC % 0 Absolute Neutrophils 8.92 H Absolute Lymphocytes 1.24 Absolute Monocytes 0.85 H Absolute Eosinophils 0.26 Absolute Basophils 0.11 Sodium 134 L Potassium 4.1 Chloride 100 Carbon Dioxide 28.6 Anion Gap 5.4 BUN 34 H Creatinine 1.2 Estimated GFR/1.73 m2 >= 60.00 Glucose 91 Calcium 9.0 Total Bilirubin 0.4 AST 30 ALT 25 Alkaline Phosphatase 79 Troponin I < 50 < 50 Total Protein 7.9 Albumin 3.9 TSH COVID-19 Source SARS-CoV-2 (PCR) Add-On Test Request 09/21/21 09/21/21 09/21/21 22:32 22:40 Unknown WBC RBC Hgb Hct MCV MCH MCHC RDW Plt Count MPV Immature Gran % Neutrophils % Lymphocytes % Monocytes % Eosinophils % Basophils % Nucleated RBC % Absolute Neutrophils Absolute Lymphocytes Absolute Monocytes Absolute Eosinophils Absolute Basophils Sodium Potassium Chloride Carbon Dioxide Anion Gap BUN Creatinine Estimated GFR/1.73 m2 Glucose Calcium Total Bilirubin AST ALT Alkaline Phosphatase Troponin I Total Protein Albumin TSH 1.20 COVID-19 Source Nasopharynx SARS-CoV-2 (PCR) Negative Add-On Test Request DONE Last Vital Signs Temp 36.7 C 09/22/21 00:02 Pulse 77 09/22/21 00:15 Resp 16 09/22/21 00:02 BP 111/73 09/22/21 00:02 Pulse Ox 96 09/22/21 00:02 PAWSS Have you Been Recently Intoxicated or Drunk Within the Last 30 days?: No Have you Ever Experienced Previous Episodes of Alcohol Withdrawal?: No Have you ever Experienced Withdrawal Seizures?: No Have you ever Experienced Delirium Tremens(DT)s?: No Have you ever undergone Alcohol Rehabilitation Treatment (i.e, inpt ot outpatient treatment programs)?: No Have you ever Experienced Blackouts?: No Have you ever Combined Alcohol with any other Substance of Abuse during the last 90 days?: No Positive Blood Alcohol level on Presentation? [PCS.BAL]: No Evidence of Increased Autonomic Activity (i.e. HR>120, tremor, sweating, agitation, nausea)?: No Result: 0
[2021-09-22] MEDS: Normal Saline 1,000 ML 100 ML IV (01:00)
[2021-09-22 06:06] LABS: Abs Immature Grans 0.04 10^3/uL (0.0-0.06); Absolute Basophil Count 0.08 10^3/uL (0.0-0.2); Absolute Eosinophil Count 0.27 10^3/uL (0.0-0.7); Absolute Lymphocyte Count 1.19 10^3/uL (1.2-3.4); Absolute Monocyte Count 0.86 10^3/uL (0.1-0.8); Basophils % 0.9; Eosinophils % 2.9; HCT 47.3 % (40.0-50.0); HGB 15.3 g/dL (13.5-17.5); Immature Grans % 0.4; Lymphocytes % 12.9; MCHC 32.3 % (32.0-36.0); MCV 86.6 fL (80-95); MPV 9.2 fL (8.0-11.0); Monocytes % 9.3; Neutrophils % 73.6; Nucleated RBC 0 %; Platelet Count 571 10^3/uL (130-400); RBC 5.46 10^6/uL (4.36-5.78); WBC 9.24 10^3/uL (4.4-10.8)
[2021-09-22 06:22] LABS: Anion Gap 6.3 mmol/L (3-11); BUN 27 mg/dL (7-18); CO2 24.7 mmol/L (21.0-32.0); Chloride 104 mmol/L (98-107); Glucose 102 mg/dL (74-106); Magnesium 2.3 mg/dL (1.8-2.4); Potassium 4.2 mmol/L (3.5-5.1); Sodium 135 mmol/L (136-145)
[2021-09-22] MEDS: Aspirin 81 MG CHEW PO (07:50)
[2021-09-22] MEDS: Normal Saline Flush 10 ML SYR IVP (07:50)
--- NOTE | 2021-09-22 10:11 | INITIAL_ITS ---
- If Service Date Differs Date of service: 09/22/21 Time of Service: 10:11 Care Management Initial Assess REASON FOR HOSPITALIZATION:: Syncope PAST MEDICAL HISTORY/PAST SURGICAL HISTORY:: All Active Problems . Syncope (Chronic). Bursitis of left shoulder (Acute). Tendinitis of long head of biceps brachii of left shoulder (Acute). Traumatic tear of left rotator cuff (Acute ~04/2021). Dyshidrotic foot dermatitis (Acute). Erectile dysfunction (Acute). Right shoulder pain (Acute). History of tobacco use (Acute). Abnormal findings diagnostic imaging of heart and coronary circulation (Acute). Ventricular tachycardia (Acute). Chest pain (Acute). Syncope (Acute). Medical History . Dental caries (10/23/17). Surgical History . shoulder surgery left PREVIOUS FUNCTIONAL STATUS/SOCIAL/FAMILY SUPPORTS:: Heladio lives in [place] with his daughter Toshia (and family). He has 2 adult children (Toshia and Heladio Sanderson) who are supportive. He is disabled and does not drive. He is independent with his ADLs at baseline. CURRENT FUNCTIONAL STATUS:: Heladio was sitting up in bed when CM met with him. He was alert and oriented and engaged well in conversation. He went to the ED last night after having a witnessed Syncopal episode while ice fishing. He reportedly had a similar episode 2 years ago while ice fishing. Each time he reportedly became light headed while in his ice robe. Which he heats with a propaine heater. ADVANCE DIRECTIVES:: None on file, CM will offer forms. Has patient been provided with info about the portal/API?: Yes Did the patient sign up for the portal?: Yes (Previously) CODE STATUS:: Full Code INSURANCE COVERAGE / FINANCIAL ISSUES:: Medicaid. Medicare PRIMARY CARE PHYSICIAN:: [facility] POTENTIAL DISCHARGE NEEDS:: 30 day quality assurance monitor final, plan to follow up with community providers PATIENT/FAMILY EDUCATION NEEDS:: Review discharge instructions, limitations and plan to follow up with community providers. ask me three. TRANSPORTATION:: via private vehicle with family. PLAN:: Anticipate Heladio will require further inpatient cardiac monitoring. If stable he may be discharged home tomorrow with a 30 day quality assurance monitor final. He will transport via private vehicle with family and follow up with community providers and discharge plan of care as prescribed.
[2021-09-22 13:17] LABS: Carboxyhemoglobin 3.1 %
--- NOTE | 2021-09-22 14:00 | RT.EKG_ITS ---
APPROVED REPORT Exam: Resting ECG Reason for Exam: chest pain Patient Location: I HR:58 bpm ECG Measurements Heart Rate 58 AXIS MN 178 P 65 QRSd 95 QRS 57 QT 431 T 126 QTc 424 Conclusion Sinus rhythm...normal P axis, V-rate 50- 99 LVH with secondary repolarization abnormality...multi-LVH criteria, abnrm ST-T Baseline wander in lead(s) I,II,aVR,aVL,aVF
--- NOTE | 2021-09-22 14:02 | PGE_ITS ---
Date of Service Date of service: 09/22/21 Time of Service: 14:03 Subjective Subjective Interval history since last seen: The patient states he is still having chest discomfort. He denies dizziness, shortness of breath, nausea. He admits to feeling palpitations sometimes. States that the the space he was in yesterday was insulated but has 2 vents and had windows long term open when the propane heater and stove were on. He admits that the propane heater was not meant for indoor use. Two years ago, there was good ventilation, and his own propane heater was used, which was meant for indoor use. He remembers exerting himself quite a bit two years ago prior to his episodes. This year, he did not, but did have a very large meal prior to his sx starting. Both times he had chest pain/discomfort. He stopped smoking 2 years ago. He endorses an episode of legs swelling up some time ago after exposure to a chemical in water. I have reviewed his records. In 2019, his chest pain was relieved with nitroglycerin. He had a negative exercise treadmill stress test. He had episodes of vtach during his hospitalization, but no significant ectopy on cardiac event recorder he wore after hospitalization. He had a normal echo at that time wiht LVEF of 55-60% and no wall motion abnormalities. I have checked the patient's carboxyhemoglobin, and the level is 3.1, which is not c/w toxicity, which would not be expected regardless as he was in well- ventilated spaces in both times. My concern is that he did have an arrhythmic event/events. CP also concerning for angina. Will trial nitroglycerin, repeat troponin and EKG. Keep on tele. Plan for ECho and MPI stress test on Friday. Objective Last Vital Signs Temp 36.4 C L 09/22/21 08:08 Pulse 59 L 09/22/21 08:08 Resp 22 09/22/21 08:08 BP 120/76 09/22/21 08:08 Pulse Ox 96 09/22/21 08:08 Laboratory Results - last 24 hr 09/21/21 09/21/21 09/21/21 19:30 19:30 22:32 WBC 11.44 H RBC 5.63 Hgb 15.9 Hct 49.1 MCV 87.2 MCH 28.2 MCHC 32.4 RDW 15.9 H Plt Count 582 H MPV 9.0 Immature Gran % 0.5 Neutrophils % 78.0 Lymphocytes % 10.8 Monocytes % 7.4 Eosinophils % 2.3 Basophils % 1.0 Nucleated RBC % 0 Absolute Neutrophils 8.92 H Absolute Lymphocytes 1.24 Absolute Monocytes 0.85 H Absolute Eosinophils 0.26 Absolute Basophils 0.11 Carboxyhemoglobin % Sodium 134 L Potassium 4.1 Chloride 100 Carbon Dioxide 28.6 Anion Gap 5.4 BUN 34 H Creatinine 1.2 Estimated GFR/1.73 m2 >= 60.00 Glucose 91 Calcium 9.0 Magnesium Total Bilirubin 0.4 AST 30 ALT 25 Alkaline Phosphatase 79 Troponin I < 50 < 50 Total Protein 7.9 Albumin 3.9 TSH COVID-19 Source SARS-CoV-2 (PCR) Add-On Test Request 09/21/21 09/21/21 09/21/21 22:32 22:40 Unknown WBC RBC Hgb Hct MCV MCH MCHC RDW Plt Count MPV Immature Gran % Neutrophils % Lymphocytes % Monocytes % Eosinophils % Basophils % Nucleated RBC % Absolute Neutrophils Absolute Lymphocytes Absolute Monocytes Absolute Eosinophils Absolute Basophils Carboxyhemoglobin % Sodium Potassium Chloride Carbon Dioxide Anion Gap BUN Creatinine Estimated GFR/1.73 m2 Glucose Calcium Magnesium Total Bilirubin AST ALT Alkaline Phosphatase Troponin I Total Protein Albumin TSH 1.20 COVID-19 Source Nasopharynx SARS-CoV-2 (PCR) Negative Add-On Test Request DONE 09/22/21 09/22/21 09/22/21 05:35 05:35 13:16 WBC 9.24 RBC 5.46 Hgb 15.3 Hct 47.3 MCV 86.6 MCH 28.0 MCHC 32.3 RDW 16.0 H Plt Count 571 H MPV 9.2 Immature Gran % 0.4 Neutrophils % 73.6 Lymphocytes % 12.9 Monocytes % 9.3 Eosinophils % 2.9 Basophils % 0.9 Nucleated RBC % 0 Absolute Neutrophils 6.80 H Absolute Lymphocytes 1.19 L Absolute Monocytes 0.86 H Absolute Eosinophils 0.27 Absolute Basophils 0.08 Carboxyhemoglobin % 3.1 Sodium 135 L Potassium 4.2 Chloride 104 Carbon Dioxide 24.7 Anion Gap 6.3 BUN 27 H Creatinine 1.0 Estimated GFR/1.73 m2 >= 60.00 Glucose 102 Calcium 9.0 Magnesium 2.3 Total Bilirubin AST ALT Alkaline Phosphatase Troponin I Total Protein Albumin TSH COVID-19 Source SARS-CoV-2 (PCR) Add-On Test Request PAWSS Have you Been Recently Intoxicated or Drunk Within the Last 30 days?: No Have you Ever Experienced Previous Episodes of Alcohol Withdrawal?: No Have you ever Experienced Withdrawal Seizures?: No Have you ever Experienced Delirium Tremens(DT)s?: No Have you ever undergone Alcohol Rehabilitation Treatment (i.e, inpt ot outpatient treatment programs)?: No Have you ever Experienced Blackouts?: No Have you ever Combined Alcohol with any other Substance of Abuse during the last 90 days?: No Positive Blood Alcohol level on Presentation? [PCS.BAL]: No Evidence of Increased Autonomic Activity (i.e. HR>120, tremor, sweating, agitation, nausea)?: No Result: 0
[2021-09-22] MEDS: nitroGLYcerin 0.4 MG TAB SL (14:15)
[2021-09-22 14:21] LABS: Troponin I < 50 ng/L (<or=60)
[2021-09-22] MEDS: Triamcinolone 0.1% OINT 15 GM TUBE TP (20:48)
[2021-09-23] VITALS (7 sets, daily range): BP systolic 127–144; BP diastolic 78–83; PULSE 58–73; RESP 16–18; TEMP 36.2–37; O2SAT 88–95
[2021-09-23 06:26] LABS: Calculated LDL 141 mg/dL (<100); Cholesterol 211 mg/dL (<200); HDL Cholesterol 47 mg/dL (40-60); Triglyceride 116 mg/dL (<150)
[2021-09-23 06:35] LABS: Hemoglobin A1C 5.4 % (<5.7)
[2021-09-23] MEDS: Aspirin 81 MG CHEW PO (07:36)
[2021-09-23] MEDS: Triamcinolone 0.1% OINT 15 GM TUBE TP ×2 (07:36→19:53)
--- NOTE | 2021-09-23 16:41 | PGE_ITS ---
Date of Service Date of service: 09/23/21 Time of Service: 16:41 Assessment and Plan Assessment and plan (1) Syncope: Status: Chronic Assessment and plan: Concern for recurrent episodes of VT as noted on his last admission here. Continue to monitor on tele. Obtain echo tomorrow. Plan for MPI - but it appears that we do not have a visual merchandising director in house tomorrow. The patient is deciding whether he is willing to wait another day to wait for the MPI or would rather follow up as outpatient. On d/c, would need a cardiac event recorder as well. (2) Chest discomfort: Status: Acute Assessment and plan: Relieved with nitrolglycerin, which is concerning for unstable angina. Continue to monitor on tele. Start statin. Obtaining echo tomorrow. Will need an MPI vs cardiac cath, depending on results of echo. (3) Hyperlipidemia: Status: Acute Assessment and plan: Start statin. (4) H/O ventricular tachycardia: Status: Acute Assessment and plan: As above (5) DVT prophylaxis: Status: Acute Assessment and plan: SC heparin (6) Discharge planning issues: Status: Acute Assessment and plan: Full code Disposition pending echo results. Subjective Subjective Interval history since last seen: Chest discomfort yesterday was relieved with nitroglycerin. No events on tele. No chest discomfort today. Denies dizziness, shortness of breath, nausea. Endorses drinking a lot of caffeine and is asking if it could be responsible for what happened. Admits to drinking 8-9 cups/day. Exam Narrative Exam Narrative: General: Pleasant middle-aged male who is in great spirits, A&Ox3, NAD HEENT: EOMI, MMM Heart: RRR, no m/r/g Lungs: CTAB Abdomen: soft, nontender, nondistended Extremities: no edema BLEs Objective Last Vital Signs Temp 37.0 C 09/23/21 13:22 Pulse 67 09/23/21 15:42 Resp 18 09/23/21 13:22 BP 127/78 09/23/21 13:22 Pulse Ox 91 L 09/23/21 13:22 Laboratory Results - last 24 hr 09/23/21 09/23/21 05:40 05:40 Hemoglobin A1c 5.4 Triglycerides 116 Total Cholesterol 211 H LDL Cholesterol, Calc 141 H HDL Cholesterol 47 PAWSS Have you Been Recently Intoxicated or Drunk Within the Last 30 days?: No Have you Ever Experienced Previous Episodes of Alcohol Withdrawal?: No Have you ever Experienced Withdrawal Seizures?: No Have you ever Experienced Delirium Tremens(DT)s?: No Have you ever undergone Alcohol Rehabilitation Treatment (i.e, inpt ot outpatient treatment programs)?: No Have you ever Experienced Blackouts?: No Have you ever Combined Alcohol with any other Substance of Abuse during the last 90 days?: No Positive Blood Alcohol level on Presentation? [PCS.BAL]: No Evidence of Increased Autonomic Activity (i.e. HR>120, tremor, sweating, agitation, nausea)?: No Result: 0
[2021-09-23] MEDS: Atorvastatin 40 MG TAB PO (19:52)
[2021-09-24] VITALS (9 sets, daily range): BP systolic 120–142; BP diastolic 54–85; PULSE 60–89; RESP 14–18; TEMP 36.1–36.7; O2SAT 92–96
[2021-09-24 07:19] LABS: Platelet Count 647 10^3/uL (130-400)
[2021-09-24] MEDS: Triamcinolone 0.1% OINT 15 GM TUBE TP ×2 (08:41→20:10)
[2021-09-24] MEDS: Aspirin 81 MG CHEW PO (08:41)
--- NOTE | 2021-09-24 09:15 | NUR.NOTE ---
Accessed patient record to cancel a duplicate EKG order. Brook Dave Nursing Note:
--- NOTE | 2021-09-24 11:48 | PDOC.CMPRO ---
- If Service Date Differs Date of service: 09/24/21 Time of Service: 11:48 Care Management Progress Note S/O: Heladio was lying in bed when CM met with him. He was pleasant and easy to engage in conversation. He had an echo at 0800 this morning and is anticipating being seen by the environmental engineer scientist tomorrow and having a MPI. A: 66 year old male admitted to [facility] on 09/23/2021 for Syncope, chest discomfort, hyperlipidemia P: Heladio requires further inpatient cardiac testing and consultation with cardiology. Anticipate he will discharge home with no new services when medically cleared by cardiology and hospitalist. He will transport via private vehicle with family and follow up with community providers and discharge plan of care as prescribed. CM will continue to support discharge planning needs.
[2021-09-24] MEDS: Normal Saline Flush 10 ML SYR IVP ×2 (13:35→21:42)
--- NOTE | 2021-09-24 13:56 | W.PM.PROGNOT ---
Date of Service Date of service: 09/24/21 Time of Service: 13:57 Assessment and Plan Assessment and plan (1) Syncope: Status: Chronic Assessment and plan: Concern for recurrent episodes of VT as noted on his last admission here; no recurrences on this admission so far. Echo reviewed: no significant abnormalities. Continue to monitor on tele. For MPI tomorrow (no MPI available today in the hospital). Cardiac event recorder upon discharge (unless MPI positive and needs a cardiac cath). (2) Chest discomfort: Status: Acute Assessment and plan: Relieved with nitrolglycerin, which is concerning for unstable angina. Continue to monitor on tele. Continue asa, statin. No wall motion abnormalities on echo. For MPI tomorrow. (3) Hyperlipidemia: Status: Acute Assessment and plan: Continue statin. (4) H/O ventricular tachycardia: Status: Acute Assessment and plan: As above (5) DVT prophylaxis: Status: Acute Assessment and plan: SC heparin (6) Discharge planning issues: Status: Acute Assessment and plan: Full code For MPI tomorrow. Anticipate d/c home vs transfer to a tertiary care facility based on MPI results. MPI is not available at our facility until tomorrow. Subjective Subjective Interval history since last seen: Agrees to stay until tomorrow to get the stress test done. Denies dizziness, chest discomfort, shortness of breath, nausea. Exam Narrative Exam Narrative: General: Pleasant middle-aged male, looks well A&Ox3, NAD HEENT: EOMI, MMM Heart: RRR, no m/r/g Lungs: CTAB Abdomen: soft, nontender, nondistended Extremities: no edema BLEs Objective Last Vital Signs Temp 36.6 C 09/24/21 11:51 Pulse 64 09/24/21 11:51 Resp 16 09/24/21 11:51 BP 140/84 09/24/21 11:51 Pulse Ox 94 09/24/21 11:51 Laboratory Results - last 24 hr 09/24/21 06:38 Plt Count 647 H PAWSS Have you Been Recently Intoxicated or Drunk Within the Last 30 days?: No Have you Ever Experienced Previous Episodes of Alcohol Withdrawal?: No Have you ever Experienced Withdrawal Seizures?: No Have you ever Experienced Delirium Tremens(DT)s?: No Have you ever undergone Alcohol Rehabilitation Treatment (i.e, inpt ot outpatient treatment programs)?: No Have you ever Experienced Blackouts?: No Have you ever Combined Alcohol with any other Substance of Abuse during the last 90 days?: No Positive Blood Alcohol level on Presentation? [PCS.BAL]: No Evidence of Increased Autonomic Activity (i.e. HR>120, tremor, sweating, agitation, nausea)?: No Result: 0
--- NOTE | 2021-09-24 14:17 | PHA.REVIEW ---
Pharmacy Admission Review - Admission Clinical Review (Last Reviewed 09/22/21 @ 00:58 by Damion Rosario MD) Discharge planning issues (Acute) DVT prophylaxis (Acute) H/O ventricular tachycardia (Acute) Hyperlipidemia (Acute) Chest discomfort (Acute) History of tobacco use (Acute) Chest pain (Acute) Sulfa (Sulfonamide Antibiotics) Allergy (Intermediate, Verified 08/15/21 10:49) Rash Resuscitation Status Full Code Height 5 ft 10 in Weight 72 kg - Renal Dosing Renal Dosing: BUN 27 mg/dL (7-18) H 09/22/21 05:35 Creatinine 1.0 mg/dL (0.70-1.30) 09/22/21 05:35 Medications needing adjustments: Reviewed (Crcl ~73 mL/min current meds okay.) - Anticoagulation Anticoagulation: Hgb 15.3 g/dL (13.5-17.5) 09/22/21 05:35 Hct 47.3 % (40.0-50.0) 09/22/21 05:35 Plt Count 647 10^3/uL (130-400) H 09/24/21 06:38 Creatinine 1.0 mg/dL (0.70-1.30) 09/22/21 05:35 DVT Prophylaxis: Reviewed Medications: Heparin Therapeutic Anticoagulation: N/A - Opiate Usage Evaluate Pain Scale/Pains Meds: N/A - Relevant Labs Sodium 135 mmol/L (136-145) L 09/22/21 05:35 Potassium 4.2 mmol/L (3.5-5.1) 09/22/21 05:35 Chloride 104 mmol/L (98-107) 09/22/21 05:35 Magnesium 2.3 mg/dL (1.8-2.4) 09/22/21 05:35 Electrolytes, C-Reactive P, ESR: Reviewed - DM Control DM Control: Glucose 102 mg/dL (74-106) 09/22/21 05:35 Hemoglobin A1c 5.4 % (<5.7) 09/23/21 05:40 Insulin Dosing: N/A - Heart Failure/MN Heart Failure/MN: Troponin I < 50 ng/L (<or=60) 09/22/21 13:16 EF%, LEVON's, B-Blockers, Diuretics: Reviewed - BP Control BP Control: Blood Pressure 140/84 Blood Pressure 137/85 Blood Pressure 142/79 If elevated: Reviewed (A few elevated levels but BP has been within normal limits most of admission so far.) - Qtc Review If Elevated: N/A (QTc 426 on admission) - IV to PO Switch IV Medications: Reviewed - Home Meds Home Med List reviewed: Reviewed Relevent Home Meds Not ordered & why?: triamcinolone (per med rec unknown when last taken) - Current meds Current Medication Order Review: Reviewed - Comments Comments/Follow Ups: Watch BP, labs and for med changes.
[2021-09-24] MEDS: Atorvastatin 40 MG TAB PO (20:10)
[2021-09-25 03:53] VITALS: BP 120/54; PULSE 74; RESP 16; TEMP 36.5; O2SAT 94
[2021-09-25 07:11] VITALS: BP 130/81; BP 136/86; BP 153/86; BP 163/78; PULSE 56; PULSE 62; PULSE 67; PULSE 69; RESP 16; TEMP 36.5; O2SAT 96
[2021-09-25 07:27] VITALS: PULSE 63
--- NOTE | 2021-09-25 08:00 | DI.NM_ITS ---
APPROVED REPORT Exam: Exercise Treadmill Patient Location: In-Patient Room/Bed: [facility] Stress Nurse: Louann Lopes RN Ordering Provider:SAW RODRIGUEZ, Contact Number: [phone] BMI: 22.66 Baseline Rhythm: Sinus Bradycardia Comment: Left Ventricular Hypertrophy, PACs present Indications: CHEST PAIN, SYNCOPE Medical History Medical History: Hx tobacco abuse, Ventricular tachycardia, HLD, Syncope, Chest pain, Erectile dysfun ction Cardiac Medications: Aspirin, Nitro SL (inptaient) Allergies: Sulfa antibiotics Cardiac Risk Factors: Hyperlipidemia, Smoking (former) Previous Cardiac Procedures: None Pretest Chest Pain Characteristics: No chest pain Exercise History: Physically active Physical Disabilities: None Lung Sounds: Clear to auscultation Heart Sounds: Regular Stress Test Details Test: Exercise stress testing was performed using a Dakotah protocol. Nuclear Acquisition: Rest Tc-99m/Stress Tc-99m 1 day Rest Isotope: Tc-99m Sestamibi. Dose: 9.5 Date: 09/25/2021 Injection Time: 1130 Stress Isotope: Tc-99m Sestamibi. Dose: 30.0 Date: 09/25/2021 Injection Time: 1245 HR Resting HR Supine: 59 bpm Max Heart Rate (APMHR): 153.714001 bpm Resting HR Standin bpm Target HR (85% APMHR): 130.889449 bpm Max HR Achieved: 140 bpm % of APMHR: 91.50 Recovery HR: 88 bpm HR response to stress: Normal HR response to stress BP Resting BP Supine: 142/80 mmHg Resting BP Standin/80 mmHg Max BP: 168/88 mmHg Recovery BP: 142/80 mmHg BP response to stress: Normal blood pressure response to stress. ECG Resting ECG: Sinus Rhythm, LVH Ectopy: PACs Stress ECG: Sinus Tachycardia ST Change: No significant ST segment changes noted Arrhythmia: PVCs, PACs Recovery ECG: Sinus Rhythm Recovery ST Change: No significant ST segment changes noted Recovery Arrhythmia: PACs, PVCs Clinical Reason for Termination: Calf pain Stress Symptoms: Dyspnea, Leg Fatigue Exercise duration: 10 min58 sec Highest Stage Reached: Stage 4: 4.2 mph at 16% grade. Exercise capacity: 13.43 METs Urbano Treadmill Score: 11 Rate Pressure Product: 24033 Stress ECG Conclusion 1. Resting electrocardiogram showed voltage for left ventricular hypertrophy 2. Patient exercised on the Dakotah protocol and completed a workload of 13.43 METS 3. Normal heart rate and blood pressure response to exercise. The patient achieved 95% of predicted heart rate for age 4. There was no electrocardiographic evidence of myocardial ischemia with exercise 5. Sporadic atrial and ventricular ectopic beats were noted Urbano Treadmill Score is 11 which is Low risk. Stress Test Summary STAGE Time (mins) Speed (mph) Grade (%) HR BP SYMPTOMS METS Supine 59 142/80 Standing 61 128/80 SpO2 99% 1 3 1.7 10 95 150/84 4.6 2 6 2.5 12 104 154/80 7 3 9 3.4 14 122 SpO2 98% 10.2 1 min recovery 122 160/80 3 min recovery 99 168/88 6 min recovery 88 142/80 MPI Conclusion Myocardial perfusion is normal. There is no evidence of ischemia or prior infarction Calculated EF is 41% Radiologist Interpretation Radiologist Interpretation by: Ned Parra MD Interpretation Date/Time: 09/26/2021 17:01:00
[2021-09-25] MEDS: Aspirin 81 MG CHEW PO (08:46)
[2021-09-25] MEDS: Triamcinolone 0.1% OINT 15 GM TUBE TP (08:46)
--- NOTE | 2021-09-25 13:02 | PDOC.CMPRO ---
- If Service Date Differs Date of service: 09/25/21 Time of Service: 13:02 Care Management Progress Note S/O: Heladio will have an MPI to determine discharge plan. CM continues to follow. A: 66 year old male admitted to [facility] on 09/23/2021 for Syncope, chest discomfort, hyperlipidemia P: Heladio will discharge home with no new services when medically cleared by cardiology and hospitalist. He may have a rn cardiac post discharge. He will transport via private vehicle with family and follow up with community providers and discharge plan of care as prescribed. CM will continue to support discharge planning needs.
[2021-09-25 15:00] VITALS: PULSE 71
[2021-09-25 15:05] VITALS: BP 154/51; PULSE 85; RESP 18; TEMP 36.1; O2SAT 97
--- NOTE | 2021-09-25 15:59 | DSE_ITS ---
Date of service: 09/25/21 Time of Service: 15:59 DS: Diagnosis Discharge Diagnosis (1) Syncope: Status: Chronic (2) Chest discomfort: Status: Acute (3) Hyperlipidemia: Status: Acute (4) H/O ventricular tachycardia: Status: Acute Discharge Plan Disposition Patient Disposition: HOME Condition: Serious Discharge Details Reason For Visit: Syncope Admit Date/Time: 09/21/21 22:23 Admit Provider: Damion Rosario Attending Provider: Damion Rosario Primary Care Provider: Rhett Garrett Hospital Course Hospital Course: Mr Delaney is a 66 year old male with PMHx of prior syncopal episodes 2 years ago, as well as h/o tobacco abuse, h/o nonsustained VT at the time of his admission in 2019, and a dyshidrotic foot dermatitis, who was a patient on [facility] hospitalist service from 09/21/21 until 09/25/21, having presented with two syncopal episodes while ice fishing. He also had chest discomfort on this admission which was relieved with nitroglycerin. On this admission, he ruled out for ACS with serial EKGs and troponins, had a normal echocardiogram and a negative MPI stress test. He did have one set of orthostatic vital signs which could be interpreted as positive, but the remainder of them were not suggestive of this. The patient is being discharged home with a new prescription for a statin, with instructions to stop smoking, and with a 30 day cardiac event recorder. He should follow up with his PCP in 1-2 weeks. He is getting a prescription for prn nitroglycerin as well. He is told not to drive until cleared by PCP. Care for patient as well as completion of his discharge summary took 45 minutes to complete. Home Meds and New Rx's Prescriptions: New atorvastatin 40 mg Tablet 40 mg PO QPM Qty: 30 0RF nicotine 21 mg/24 hr Patch 24 Hour 21 mg transdermal DAILY PRN PRNQty: 30 0RF nitroglycerin 0.4 mg Tablet, Sublingual 0.4 mg sublingual Q5 MIN PRN X3 PRNQty: 30 0RF No Action aspirin 81 mg capsule 81 mg PO DAILY 0RF triamcinolone acetonide 0.1 % ointment 1 applic TOPICAL BID 0RF Label Comments: APPLY TOPICALLY TO THE AFFECTED AREA TWICE DAILY NEEDED FOR FOOT RASH Rx Instructions: apply to B heels Discharge Instructions Instructions: Chest Pain (DC), How to Stop Smoking (DC), Heart Healthy Diet (DC), Syncope (DC), Cigarette Smoking and Your Health (GEN) Additional Instructions: Return to the hospital with any more episodes of fainting, if you develop a fever, bleeding, chest pain, shortness of breath or bleeding. You should not drive or operate heavy machinery until cleared by PCP. Follow up with your PCP in 1-2 days. You should stop smoking! Referrals: Rhett Garrett MD [Primary Care Provider] - Activity:: Activity as Tolerated Equipment/Supplies:: cardiac event recorder Diet:: heart healthy diet Discharge Orders Discharge Orders: Discharge Order (Routine); Ordered 09/25/21 Ordered By: Whit Díaz Other Ambulatory Orders: Cardiac Event Recorder (Routine) Timeframe: 1 Day Facility: [facility] - Location: Respiratory Therapy Ordered By: Whit Díaz DS: Summary Time Spent with Patient providing and/or coordinating discharge services: Greater than 30 minutes Status at Discharge Functional status at discharge: independent ambulation Overall status at discharge: patient is back to baseline Mental Status: mental status grossly normal Speech and Movement: speech and movement normal Mood: congruent mood Affect: normal affect Exam Narrative Exam Narrative: General: Pleasant middle-aged male, looks well A&Ox3, NAD HEENT: EOMI, MMM Heart: RRR, no m/r/g Lungs: CTAB Abdomen: soft, nontender, nondistended Extremities: no edema BLEs Psych Mental Status: mental status grossly normal Speech and Movement: speech and movement normal Mood: congruent mood Affect: normal affect DS: Data Vitals/I&O Vitals and I&O: Vital Signs Temperature 36.1 C L 09/25/21 15:05 Temperature Source Tympanic 09/25/21 15:05 Pulse 85 09/25/21 15:05 Pulse Rhythm Regular 09/25/21 10:33 Respiratory Rate 18 09/25/21 15:05 Respiratory Effort Non-Labored 09/25/21 10:33 Respiratory Depth Normal 09/25/21 10:33 Respiratory Pattern Normal 09/25/21 10:33 Blood Pressure 154/51 H 09/25/21 15:05 Blood Pressure Position Sitting 09/21/21 19:15 Pulse Oximetry 97 09/25/21 15:05 Oxygen Delivery Method Room Air 09/25/21 15:05 Oxygen Flow Rate 0 09/25/21 15:05 Pain Level 0 09/25/21 03:53 Comment 09/23/21 19:54 Intake & Output 09/24/21 09/25/21 09/25/21 23:59 11:59 23:59 Intake Total 480 / 480 240 / 240 Output Total 300 / 300 Balance 180 / 180 240 / 240 Weight 72.7 kg Intake: Oral 480 / 480 240 / 240 Output: Urine 300 / 300 Other: Urine Color Light Aileen Urine Appearance Clear Clear Urine Odor Normal Voiding Methods Urinal Data Completed and Pending Completed studies during hospitalization [Text1]: CTA chest: No evidence of pulmonary embolism, thoracic aortic dissection or aneurysm within the limitations of the examination.? Echo: LVEF 58%, No ventricular wall motion abnormalities, RVSP 28.3 mmHg. No hemodynamically significant valvular disease. MPI: preliminary result - negative. Final read pending. PFSH All Active Problems (Updated 09/23/21 @ 16:44 by Whit Díaz MD) Discharge planning issues (Acute) DVT prophylaxis (Acute) H/O ventricular tachycardia (Acute) Hyperlipidemia (Acute) Chest discomfort (Acute) Syncope (Chronic) Bursitis of left shoulder (Acute) Tendinitis of long head of biceps brachii of left shoulder (Acute) Traumatic tear of left rotator cuff (Acute ~04/2021) Dyshidrotic foot dermatitis (Acute) Erectile dysfunction (Acute) Right shoulder pain (Acute) History of tobacco use (Acute) Abnormal findings diagnostic imaging of heart and coronary circulation (Acute) Ventricular tachycardia (Acute) Chest pain (Acute) Syncope (Acute) Medical History Dental caries (10/23/17) Surgical History shoulder surgery left Family History Mother Dementia Father Essential hypertension Renal failure Brother MVA (motor vehicle accident) Brother No problems noted. Brother No problems noted. Brother No problems noted. Social History Smoking/Tobacco Use Status: Former Tobacco Use Tobacco: How many years used: 35 Smoking risk assessment performed?: Yes Alcohol Intake: never Drug use: Never Substance use type: does not use Current gender identity: male Do you feel safe at home: Yes Do you feel safe in your relationship?: Yes
--- NOTE | 2021-10-26 14:14 | W.CARDEVENT ---
Date of service: 10/26/21 Time of Service: 14:14 Cardiac Event Recorder Referring Provider:: Sergio Indications:: Syncope Cardiac Event Note: This is a 30-day recorder ordered for indication of syncope. ?The patient was in normal sinus rhythm for the majority of the recording with an average heart rate of 77 bpm. ?There were 0 critical and 0 serious events. There were 4 stable automatically detected events associated with NSVT the longest lasting 7 beats. ?There were 3 patient triggered events all associated with sinus rhythm. ?There are no episodes of atrial fibrillation, no pauses greater than 3 seconds and no evidence of high degree heart block.
== END 2021-09-25 17:00 | disposition home or self-care (01) | DRG 312 ==
LOC: ER 22:30 → MS 23:52
PROVIDERS: Internal Medicine; Admitting Provider Family Medicine; Emergency Provider Student in an Organized Health Care Education/Training Program; PCP Family Medicine; Visit Provider Family Medicine
DX: R55 Syncope and collapse (principal); R07.2 Precordial pain; E78.5 Hyperlipidemia, unspecified; F17.210 Nicotine dependence, cigarettes, uncomplicated; W18.39XA Other fall on same level, initial encounter
CPT/HCPCS: 36415; 71275; 78452; 80048; 80053; 80061; 82375; 87635; 93005; 93016; 93018; 93270; 99284; 99285; 83036; 83735; 84443; 84484; 85025; 85049; 93010; 93017; 93306; 99223; 99232; 99239; J3490

== ENCOUNTER 2021-10-26 14:14 | Outpatient (CLI) | payer MEDICARE, MEDICAID, SELFPAY | END 2021-10-26 14:15 | LOC: CARDO 12-11 11:58 | PROVIDERS: PCP Family Medicine; Referring Provider Student in an Organized Health Care Education/Training Program; Visit Provider Internal Medicine Cardiovascular Disease | DX: R07.9 Chest pain, unspecified (principal); I47.2 Ventricular tachycardia | CPT/HCPCS: 93272 ==

== ENCOUNTER 2021-10-31 01:33 | Outpatient (CLI) | payer MEDICARE, MEDICAID, SELFPAY ==
[2021-10-31 11:42] LABS: Source Nasal/Nares
[2021-10-31 14:25] LABS: COVID-19 PCR Negative (Negative)
== END 2021-10-31 01:34 | disposition home or self-care (01) ==
LOC: LBO 01:33
PROVIDERS: PCP Family Medicine; Visit Provider Student in an Organized Health Care Education/Training Program
DX: Z20.822 Contact with and (suspected) exposure to COVID-19 (principal)
CPT/HCPCS: 87635; U0005

== ENCOUNTER 2021-11-02 06:03 | Day surgery (SDC) | payer MEDICARE, MEDICAID, SELFPAY ==
[2021-11-02] VITALS (10 sets, daily range): BP systolic 99–144; BP diastolic 43–77; PULSE 57–100; RESP 9–20; TEMP 36.1–36.6; O2SAT 94–98; BMI 24.3
[2021-11-02] MEDS: Lactated Ringers 1,000 ML 100 ML IV (06:38)
--- NOTE | 2021-11-02 07:05 | ANES.PREOP_ITS ---
General Info Date of Service Date Performed: 11/02/21 Height: 5 ft 9 in Weight: 74.8 kg Body Mass Index (BMI): 24.3 Surgical Procedure: Operation Date: 11/02/21 07:40 Proposed Procedure Side Surgeon p Shoulder Rotator Cuff Arthroscopic w/Extensive Debridement, Bicep Tenodesis, Subacromial decompression, possible Superior Capsular Reconstruction Left Lawrence York MD Meds Allergies and Home Medications Allergies Allergy/AdvReac Type Severity Reaction Status Date / Time Sulfa (Sulfonamide Allergy Intermediate Rash Verified 11/02/21 06:22 Antibiotics) Home Medication Medication Instructions Recorded aspirin 81 mg capsule 81 mg PO DAILY 08/15/21 triamcinolone acetonide 0.1 % 1 applic TOPICAL BID 09/22/21 topical ointment atorvastatin 40 mg tablet 40 mg PO QPM #30 tab 09/25/21 nicotine 21 mg/24 hr daily 21 mg TRANSDERMAL DAILY PRN PRN 09/25/21 transdermal patch #30 ea nitroglycerin 0.4 mg sublingual 0.4 mg SUBLINGUAL Q5 MIN PRN X3 09/25/21 tablet PRN #30 tab tadalafil 20 mg tablet 20 mg PO DAILY PRN #30 tab 10/05/21 aspirin 81 mg tablet,delayed 81 mg PO DAILY 14 Days #14 tab 11/02/21 release naproxen 250 mg tablet 250 - 500 mg PO BID PRN #40 tab 11/02/21 oxycodone 5 mg tablet 5 - 10 mg PO Q4H PRN #18 tab MDD 11/02/21 30 mg Current Visit Medications: Current Medications Generic Name Dose Route Start Last Admin Trade Name Freq PRN Reason Stop Dose Admin Ringer's Solution 1,000 mls @ 100 mls/hr 11/02/21 06:00 11/02/21 06:38 IV 12/01/21 23:59 100 mls/hr INFUSION KENNA Administration Cefazolin Sodium/Dextrose 2 gm in 50 mls @ 100 mls/hr 11/02/21 06:00 Ancef Duplex IVPB 11/02/21 16:00 PREOP KENNA IV Miscellaneous Supplies 1 each 11/02/21 06:00 Iv Access IV 12/01/21 23:59 DIRECTED KENNA Sodium Chloride 0 ml 11/02/21 06:00 Normal Saline Flush 10 Ml Syr IV 12/01/21 23:59 PRN PRN Sodium Chloride 0 ml 11/02/21 06:00 Normal Saline 10 Ml Vial IJ 12/01/21 23:59 DIRECTED PRN Sterile Water 0 ml 11/02/21 06:00 Water,Injection,Sterile 10 Ml Vial IJ 12/01/21 23:59 DIRECTED PRN PFSH Active Problems Active Problems: Problem Status Onset Code Syncope R55 Chest pain R07.9 Ventricular tachycardia I47.2 Abnormal findings diagnostic imaging of heart and coronary circulation R93.1 Right shoulder pain M25.511 Erectile dysfunction N52.9 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 states his PCP too much caffeine triggered it History of tobacco use Surgical History Surgical History (Updated 11/02/21 @ 06:22 by Cheri Calabrese) S/P arthroscopy of right shoulder shoulder surgery left Tobacco Smoking/Tobacco Use Status: Former Tobacco Use Passive smoking exposure: Yes Alcohol Alcohol Intake: current Alcohol intake frequency: a few times a month Alcohol type: beer Substance Use Substance use: Occasionally Substance use type: marijuana Vital Signs and Lab Results Vital Signs Most Recent Vital Signs in EMR: Most Recent Vital Signs Temp Pulse Resp BP Pulse Ox 36.6 C 100 H 18 131/75 95 11/02/21 06:14 11/02/21 06:14 11/02/21 06:14 11/02/21 06:14 11/02/21 06:14 Lab Results Blood Type / Crossmatch: No Data to Display Complete Blood Count: No Data to Display Complete Metabolic Panel: No Data to Display Liver Function Panel: No Data to Display Coagulation Panel: No Data to Display Cardiac Panel: No Data to Display Arterial Blood Gas: No Data to Display Venous Blood Gas: No Data to Display Pancreas Panel: No Data to Display Thyroid Panel: 2 No Data to Display Infectious Disease: Coronavirus (COVID-19)(PCR) Negative (Negative) 10/31/21 10:10 10/31/21 Coronavirus 2019 Source Nasal/Nares 10/31/21 10:10 10/31/21 Blood Cultures: No Data to Display Toxicology Panel: No Data to Display Imaging and Studies Imaging and Studies Study information below may be from another EMR and interpreted by another provider. Please see original notes in EMR for more complete details. EKG Summary: Conclusion Sinus rhythm...normal P axis, V-rate 50- 99 LVH with secondary repolarization abnormality...multi-LVH criteria, abnrm ST-T Baseline wander in lead(s) I,II,aVR,aVL,aVF 09/22/21 Stress Test Summary: Stress ECG Conclusion 1. The patient exercised for 10 minutes 20 seconds (12 METS) 2. Exercise was stopped due to fatigue. Pressure product was 28,000 3. There was no evidence of ischemia or significant ectopy at this level of stress. 4. The Urbano Score (10) estimates an annual cardiovascular mortality of 0% and a five year survival of 96%. Using the Urbano Score there is a low probability of any angiographic coronary disease. Echocardiogram Summary: EF 58% no significant valve disease 09/24/21 Anesthesia Assessment and Plan Anesthesia History Personal History: No History of Anesthesia Complications Family History: No Family History of Anesthesia Complications Exercise Tolerance Exercise Tolerance: Metabolic Equivalents>4 Pertinent Negatives Pertinent Negatives: No Symptoms of GERD, No Major Cardiovascular Symptoms or Complaints, No Major Pulmonary Symptoms or Complaints and No History of CVA/TIA Cardiac & Pulmonary Exam Cardiac Exam: Normal S1/S2 Heart Sounds Pulmonary Exam: Clear Bilateral Breath Sounds Implantable Cardiac Device Does patient have a Pacemaker or an ICD?: No Airway Exam Known Difficult Airway: No Mallampati Class: 2 Mouth Opening: Normal (> 3cm) Thyromental Distance: Greater than 3 cm Neck Range of Motion: Full ROM Neck Circumference: Normal Teeth Condition: Edentulous ASA Classification ASA Score: ASA 2 Emergency Case?: No NPO Status NPO Status: NPO Clears >2 hours, Solids >8 hours Anesthesia Plan Resuscitation Status: Full Code Anesthesia Technique: General Anesthesia Airway Planned: Endotracheal Tube Pain Management: Surgeon and patient request nerve block Monitors Used: Standard Monitors
[2021-11-02] MEDS: ceFAZolin 2 GM/50 ML BAG IVPB (07:41)
--- NOTE | 2021-11-02 08:00 | ROE_ITS ---
Date of service: 11/02/21 Time of Service: 07:30 Operative Note Operative Note DATE OF PROCEDURE: 11/02/21 PRE-OP DIAGNOSIS: Left: 1. Rotator cuff tear 2. LHB tendinopathy 3. Bursitis POST-OP DIAGNOSIS: same PROCEDURE: Left: 1. Rotator cuff repair, CPT# 49508. This involved repair of the subscapularis and supraspinatus + infraspinatus using anchors and sutures to reattach the rotator cuff back to the footprint of the lesser and greater tuberosity. 2. Arthroscopic biceps tenodesis, CPT# 23379. This involved arthroscopically suturing and reattaching the long head of the biceps tendon to the proximal humerus at the superior margin of the bicipital groove with a screw at the correct tension. 3. Extensive debridement, CPT# 98927. This involved using arthroscopic hand instruments, power instruments, and radiofrequency instruments to release the long head of the biceps tendon and debride areas of labral tearing, synovitis, and chondromalacia about the biceps groove and greater tuberosity within the glenohumeral joint anteriorly, superiorly and posteriorly as well as debride posterior superior glenoid marginal osteophyte. 4. Subacromial decompression with partial acromioplasty, CPT# 79238. This involved using arthroscopic power instruments and a radiofrequency wand to complete a bursectomy and remove bone spurs on the undersurface of the acromion. The mortgage loan assistant was medically required in order to help assist in techniques above, which require positioning the arm, holding the arthroscope, and manipulating multiple instruments and sutures at the same time. This cannot be done without the help of an experienced mortgage loan assistant. SURGEON: Lawrence York ROOFING TECHNICIAN: Katherine Lepe ANESTHESIA TYPE: General LMA/ETT and Primary Nerve Block Refer to Anesthesia Record ESTIMATED BLOOD LOSS: 5 PATHOLOGY: none sent COMPLICATIONS: None Patient was transported to: PACU Patient's condition: stable Implants: Arthrex: 4.75mm SwiveLocks x 3 Indications: The patient was diagnosed with the above conditions and appropriately indicated for surgical intervention. Please see complete medical record for details. Findings: Exam under anesthesia: Full ROM, no instability Glenohumeral joint: Significant synovitis anterior, superior, and posterior; upper half subscap full thickness tear with articular biceps medial subluxation and partial tearing; obvious full thickness anterior subscap defect with rotator interval inflammation and degenerated tissue Subacromial space: Significant bursitis and mild undersurface acromial bone spur. Largely intact infraspinatus with chronic retraced suprapsinatus RC tearing starting at rotator interval. Procedure Description: In the operating room, general anesthesia was induced. Bilateral shoulders were examined. The patient was positioned in the beachchair position. All bony prominences were well-padded. Preoperative antibiotics were administered. The shoulder was prepped and draped in the usual sterile fashion. The correct patient, procedure, and side of the procedure were all verified prior to incision. Starting through the posterior portal a standard complete diagnostic arthroscopy was performed of the glenohumeral joint including inspection of the long head of the biceps, anterior and superior labrum, subscapularis tendon, supraspinatus and infraspinatus tendons, and axillary recess. The glenoid and humeral head cartilage as well as the posterior labrum were inspected from an anterior viewing portal. Significant findings and interventions noted above. Cannulas were inserted anteriorly in the superior anterolateral portal through the full-thickness anterior rotator cuff tear. The biceps tendon was secured with a FiberLink around through the tendon in a loop and tack method. It was retracted out the superior lateral portal. The lesser tuberosity upper half was prepared to optimize bone tendon healing. A single FiberTape upper aspect of the subscapularis tear with good tissue hold in the body using the self retrieving suture passer. The punch through the anterior portal was used to localize placement of the suture anchor. A 4.75 SwiveLock anchor combined with biceps tenodesis and subscapularis repair sutures was then deployed with excellent fixation appropriate tension on both repair and tenodesis. Biceps was tested with excellent fixation and security. Arm was taken through external rotation with no undue tension or loss of repair. Starting through the posterior portal, the arthroscope was directed into the subacromial space. A lateral 50 yard line lateral portal was created. A combination of power instruments and a radiofrequency ablator were used to debride bursitis anteriorly, posteriorly, and laterally as well as expose and smooth bone spurring on the undersurface of the acromion. The coracoacromial ligament was minimally released. The bursectomy was completed viewing laterally and working from posteriorly and the rotator cuff was thoroughly inspected with findings noted above. Cannulas were inserted at the posterior superior lateral and lateral 50 yard line per portal. The greater tuberosity was debrided of chronic fibrinous tissue and to optimize tendon bone healing. The anterior interval frayed tissue was debrided and the tear was largely a full-thickness retracted supraspinatus that was somewhat chronic and retracted which was freed up medially as best possible demonstrate excursion from medial to lateral to the medial footprint. From posterior to anterior the remaining part of the tear which was likely the posterior supraspinatus and upper infraspinatus could be well mobilized from posterior to anterior sort of an L fashion. The self retrieving suture passer was used to pass a FiberTape inverted mattress in the posterior tissue supraspinatus and infraspinatus with a FiberLink more laterally likely in the infraspinatus wrapping around and secured to a central greater tuberosity 4.75 mm SwiveLock anchor with excellent fixation strength and good coverage of tissue across the majority of the greater tuberosity. There was still a small tissue defect most anteriorly immediately posterior to the rotator interval and at this medial margin the supraspinatus tissue could be reapposed without undue tension. The self retrieving suture passer was used to place inverted FiberTape mattress in this more anterior rotator cuff tissue and secured to a single medial row anterior 4.75 mm SwiveLock anchor. Repair was tested through range of motion demonstrated excellent coverage of the greater tuberosity and fixation strength. No additional fixation or tissue coverage of the rotator interval is done to prevent iatrogenic stiffness. The shoulder was drained of arthroscopic fluid. All portal sites were copiously irrigated. These incisions were closed using 3-0 Monocryl in a buried fashion and then covered with Mastisol, Steri-Strips, Xeroform, dry gauze, and ABDs. The dressings were covered and secured with Medipore tape. The operative extremity was placed into a sling for immobilization. The patient awoke from anesthesia without complication and was transferred to the recovery room in a stable condition.
--- NOTE | 2021-11-02 08:27 | W.ANESNERVE ---
Nerve Block Single Injection Procedure Date and Time Date Performed: 11/02/21 Procedure Start: 07:19 Location Where Procedure Performed Procedure Location: Day Surgery Unit Reason Performed: Postoperative Analgesia Requesting Provider: Lawrence York Timeout Performed Timeout Performed: Yes Monitoring Used ECG, Blood Pressure and SpO2 Sterility Sterility: Hand Hygiene, Surgical Cap, Surgical Mask, Sterile Gloves and Chlorhexidine Sedation Given During Procedure Sedation Given (Indicate Dose Given): Versed IV Dose:: 2 mg Patient Mental Status Patient Mental Status: Awake Nerve Block 1st Nerve Block: Laterality: Left Block Type: Interscalene Needle / Catheter Used: 100mm SonoPlex II Local Anesthetic Bolus (Indicate Dose Given): Lidocaine used for local infiltration of skin, Injected in 3-5ml increments after negative blood aspiration, Bupivacaine 0.5% Dose:: 10 ml and Exparel Dose:: 10 ml Additives (Indicate Dose Given): None Ultrasound: Sterile probe cover and gel used Ultrasound Image Saved?: Yes Nerve Stimulator: Not Used Paresthesia: Left Paresthesia Duration: Transient Procedure Tolerated: Patient tolerated well Procedure Outcome: Successful Performed By: Nelia Salazar
[2021-11-02] MEDS: EPINEPHrine 30 MG/30 ML VIAL (09:36)
--- NOTE | 2021-11-02 10:20 | W.PM.DSUDISC ---
Discharge Plan Disposition Patient Disposition: HOME Condition: Stable Discharge Details Reason For Visit: Left shoulder surgery Attending Provider: Lawrence York Primary Care Provider: Rhett Garrett Home Meds and New Rx's Prescriptions: New aspirin 81 mg tablet,delayed release (DR/EC) 81 mg PO DAILY 14 Days Qty: 14 0RF naproxen 250 mg tablet 250 - 500 mg PO BID PRNQty: 40 0RF Rx Instructions: take with a meal oxycodone 5 mg tablet 5 - 10 mg PO Q4H MDD 30 mg PRN (Reason: moderate to severe pain) Qty: 18 0RF Continued aspirin 81 mg capsule 81 mg PO DAILY 0RF tadalafil 20 mg tablet 20 mg PO DAILY PRN (Reason: sexual activity) Qty: 30 1RF Rx Instructions: administer approximately 30min before sexual activity; do not use more than 1 dose per 24hrs triamcinolone acetonide 0.1 % ointment 1 applic TOPICAL BID 0RF Label Comments: APPLY TOPICALLY TO THE AFFECTED AREA TWICE DAILY NEEDED FOR FOOT RASH Rx Instructions: apply to B heels atorvastatin 40 mg Tablet 40 mg PO QPM Qty: 30 0RF nicotine 21 mg/24 hr Patch 24 Hour 21 mg transdermal DAILY PRN PRNQty: 30 0RF nitroglycerin 0.4 mg Tablet, Sublingual 0.4 mg sublingual Q5 MIN PRN X3 PRNQty: 30 0RF Discharge Instructions Additional Instructions: Surgery: Left shoulder arthroscopy with rotator cuff repair, biceps tenodesis, extensive debridement, and subacromial decompression. Activity: For 6 weeks, you should keep your arm at your side in a neutral position at all times except for physical therapy. Do not try to lift or raise your arm using your own muscles. You should use the sling whenever you are out of the house. You may have to adjust the abduction pillow or remove it for comfort. At home it is best to remove the sling and rest the arm on a pillow at your side or support the operative side with your other hand. You may allow the arm to dangle at your side. A physical therapy prescription will be sent electronically to begin in about 3 weeks. Prescriptions: Aspirin 81 mg take 1 daily to prevent a blood clot for 2 weeks Naproxen 250 mg take 1-2 every 12 hours with a meal as needed for moderate pain Oxycodone 5 mg take 1-2 every 4-6 hours as needed for severe pain You may use [id number] Tylenol (acetaminophen) as needed for mild pain. These pain medications may be taken all at once or in different combinations as needed. Also, recommend Colace (docusate) as a stool softener as surgery and pain medicine cause constipation. Dressings: Remove shoulder bandage after 3 days. Leave the sticky Steri-Strips in place until they fall off or remove them after you shower. Cover the incisions with Band-Aids or leave them open to air. You may shower after 5 days. Follow-up: 10-[address] York You may take off the leg compression stockings this evening at home. You may also leave them on a few days longer if you have a history of leg swelling or edema. Let us know right away if you develop any redness, drainage, fevers, chest pain, or trouble breathing. Do not drink alcohol or drive for at least 24 hours after anesthesia. Please call the office during business hours with any questions or concerns. Referrals: Lawrence York MD [ [facility] STAFF PHYSICIAN] - Discharge Orders Discharge Orders: Discharge Order (Routine); Ordered 11/02/21 Ordered By: Lawrence York DS: Diagnosis Discharge Diagnosis (1) Traumatic tear of left rotator cuff: Status: Acute (2) Tendinitis of long head of biceps brachii of left shoulder: Status: Acute (3) Bursitis of left shoulder: Status: Acute
--- NOTE | 2021-11-02 10:58 | W.ANESPOSTOP ---
Postoperative Evaluation Date, Time and Location Date Performed: 11/02/21 Time Performed: 10:59 Patient Location: PACU Vital Signs Most Recent Imported Vital Signs: Most Recent Vital Signs Temp Pulse Resp BP Pulse Ox 36.3 C L 64 9 L 99/66 L 94 11/02/21 10:45 11/02/21 10:45 11/02/21 10:45 11/02/21 10:45 11/02/21 10:45 Pain Score Most Recent Pain Score: Most Recent Pain Score Pain Level 0 11/02/21 10:45 Assessment Mental Status: Awake (Alert & Oriented to Patient Baseline) Airway and Respiratory Function: Patent airway with normal (patient baseline) respiratory exam Cardiovascular Function: Hemodynamically Stable Hydration Status: Adequately Hydrated Nausea & Vomiting: No Nausea or Vomiting Pain: Pt. Denies Any Pain Peripheral Nerve Block: Regional nerve block not resolved at time of post operative discharge
== END 2021-11-02 14:06 | disposition home or self-care (01) ==
PROVIDERS: PCP Family Medicine; Visit Provider Student in an Organized Health Care Education/Training Program
PROC: (CPT 29827; principal; 2021-11-02 07:30)
DX: S46.012A Strain of muscle(s) and tendon(s) of the rotator cuff of left shoulder, initial encounter (principal); M75.52 Bursitis of left shoulder; M75.22 Bicipital tendinitis, left shoulder; E78.5 Hyperlipidemia, unspecified; X58.XXXA Exposure to other specified factors, initial encounter
CPT/HCPCS: 29823; 29826; 29827; 29828; 76942; J0690; J1885; J2001; J2250; J2370; J2405; J2704

== ENCOUNTER → 2021-11-14 13:29 | Outpatient (BNVA) | payer MEDICARE, MEDICAID, SELFPAY | PROVIDERS: PCP Family Medicine; Referring Provider Family Medicine; Visit Provider Student in an Organized Health Care Education/Training Program | DX: S46.012D Strain of muscle(s) and tendon(s) of the rotator cuff of left shoulder, subsequent encounter (principal); X58.XXXD Exposure to other specified factors, subsequent encounter ==

== ENCOUNTER → 2022-01-08 10:17 | Outpatient (BNVA) | payer MEDICARE, MEDICAID, SELFPAY | PROVIDERS: PCP Family Medicine; Referring Provider Family Medicine; Visit Provider Student in an Organized Health Care Education/Training Program | DX: M75.22 Bicipital tendinitis, left shoulder (principal); M75.52 Bursitis of left shoulder; Z98.890 Other specified postprocedural states; S46.012A Strain of muscle(s) and tendon(s) of the rotator cuff of left shoulder, initial encounter; X58.XXXA Exposure to other specified factors, initial encounter ==

== ENCOUNTER → 2022-03-06 11:01 | Outpatient (BNVA) | payer MEDICARE, MEDICAID, SELFPAY | PROVIDERS: PCP Family Medicine; Referring Provider Family Medicine; Visit Provider Student in an Organized Health Care Education/Training Program | DX: X58.XXXA Exposure to other specified factors, initial encounter (principal); M75.22 Bicipital tendinitis, left shoulder; M75.52 Bursitis of left shoulder; S46.012A Strain of muscle(s) and tendon(s) of the rotator cuff of left shoulder, initial encounter; Z98.890 Other specified postprocedural states | CPT/HCPCS: 99213 ==

== ENCOUNTER 2022-06-13 13:30 | Outpatient (REF) | payer MEDICARE, MEDICAID, SELFPAY | END 2022-06-13 13:31 | disposition home or self-care (01) | LOC: LBN 13:30 | PROVIDERS: PCP Family Medicine; Visit Provider Nurse Practitioner Family | DX: L98.8 Other specified disorders of the skin and subcutaneous tissue (principal); B35.3 Tinea pedis | CPT/HCPCS: 87077; 87070; 87186; 87205 ==

== ENCOUNTER 2022-07-02 19:06 | Emergency (ER) | payer MEDICARE, MEDICAID, SELFPAY ==
[2022-07-02 19:10] VITALS: BP 127/80; PULSE 80; RESP 16; TEMP 36.3; O2SAT 97
--- NOTE | 2022-07-02 20:05 | ED.GENADUL_ITS ---
Discharge Plan Disposition Patient Disposition: Home Condition: Stable Discharge Details Clinical Impression: Contact dermatitis, Cellulitis Primary Care Provider: Rhett Garrett ED Provider: Lory Hill Home Meds and New Rx's Prescriptions: No Action aspirin 81 mg capsule 81 mg PO DAILY tadalafil 20 mg tablet 20 mg PO DAILY PRN (Reason: sexual activity) Qty: 30 1RF Rx Instructions: administer approximately 30min before sexual activity; do not use more than 1 dose per 24hrs atorvastatin 40 mg tablet 40 mg PO QPM Qty: 90 3RF triamcinolone acetonide 0.1 % ointment 1 applic TOPICAL BID Label Comments: APPLY TOPICALLY TO THE AFFECTED AREA TWICE DAILY NEEDED FOR FOOT RASH Rx Instructions: apply to B heels nitroglycerin 0.4 mg Tablet, Sublingual 0.4 mg sublingual Q5 MIN PRN X3 PRNQty: 30 0RF Discharge Instructions Instructions: Cellulitis (ED), Dermatitis (ED) Additional Instructions: stop listerine and vicks rubs on feet can continue with topical steroid cream. continue prednisone and cephalexin as previously directed. Referrals: Rhett Garrett MD [Primary Care Provider] - Discharge Data Discharge Date/Time-TO BE ENTERED AT DEPARTURE: 07/02/22 21:39 Medical Decision Making <Lory Hill NP - Last Filed: 07/03/22 16:13> Medical Records Medical records reviewed: Yes I reviewed the patient's medical records. Medical records narrative: both express care visits reviewed. patient noted to have some improvement with 2 days of steroids and cephalexin. area now most consistent with contact dermatitis. I will give him IV solumedrol 60 mg and ceftriaxone 1 gm IV and have advised him to complete his previous courses as prescribed. he was advised to call Dr Garrett for follow up appointment and recheck Lab Data Lab results reviewed: Yes I reviewed the patient's lab results. Lab results narrative: Laboratory Results - last 24 hr 07/02/22 07/02/22 07/02/22 20:15 20:15 20:15 WBC 11.45 H RBC 5.51 Hgb 15.0 Hct 47.1 MCV 86 MCH 27.2 MCHC 31.8 L RDW 18.2 H Plt Count 571 H MPV 9.2 Immature Gran % 0.6 Neutrophils % 77.8 Lymphocytes % 13.3 Monocytes % 5.3 Eosinophils % 2.4 Basophils % 0.6 Nucleated RBC % 0.0 Absolute Neutrophils 8.91 H Absolute Lymphocytes 1.52 Absolute Monocytes 0.61 Absolute Eosinophils 0.27 Absolute Basophils 0.07 ESR 17 C-Reactive Protein 0.16 Sign Out No <Mindi Kramer DO - Last Filed: 07/04/22 05:29> both express care visits reviewed. patient noted to have some improvement with 2 days of steroids and cephalexin. area now most consistent with contact dermatitis. I will give him IV solumedrol 60 mg and ceftriaxone 1 gm IV and have advised him to complete his previous courses as prescribed. he was advised to call Dr Garrett for follow up appointment and recheck Dr. Kramer Patient not seen or evaluated by me. HPI <Lory Hill NP - Last Filed: 07/03/22 16:13> General Date/Time Provider Initiated Documentation: 07/02/22 19:26 . Limitations to Documentation: no limitations . Information obtained by: patient . HPI Narrative: patient presents with bilateral foot pain, redness that has been ongoing and now worsening. He was originally seen at the beginning of the month and diagnosed with contact dermatitis with mild cellulitis and placed on oral steroids and cephalexin. he returned 2 days later as area not resolved but did report it was slowly improving. on that visit he was advised to stop the steroids and antibiotics and to begin treatment with vicks vapor rub and listerine soaks bid. he states that the area has since worsened and progressively getting more painful making ambulation difficult. He presents to re-evaluation here. denies fevers, denies similar history. Related Data Home Medications Medication Instructions Recorded Confirmed aspirin 81 mg capsule 81 mg PO DAILY 08/15/21 07/02/22 triamcinolone acetonide 0.1 % 1 applic topical BID 09/22/21 07/02/22 topical ointment nitroglycerin 0.4 mg sublingual 0.4 mg sublingual Q5 MIN PRN X3 09/25/21 07/02/22 tablet PRN #30 tabs tadalafil 20 mg tablet 20 mg PO DAILY PRN sexual activity 10/05/21 07/02/22 #30 tabs atorvastatin 40 mg tablet 40 mg PO QPM #90 tabs 11/12/21 07/02/22 Previous Rx's Medication Instructions Recorded nitroglycerin 0.4 mg sublingual 0.4 mg sublingual Q5 MIN PRN X3 09/25/21 tablet PRN #30 tabs tadalafil 20 mg tablet 20 mg PO DAILY PRN sexual activity 10/05/21 #30 tabs atorvastatin 40 mg tablet 40 mg PO QPM #90 tabs 11/12/21 Allergies Allergy/AdvReac Type Severity Reaction Status Date / Time Sulfa (Sulfonamide Allergy Intermediate Rash Verified 07/02/22 19:15 Antibiotics) General Stated Complaint: Orthopedic RASTA: 4 Review of Systems <Lory Hill NP - Last Filed: 07/03/22 16:13> Constitutional Constitutional: Denies fever(s) Integumentary/Breasts Skin/Breast: Reports dry skin, Reports lesions, Reports erythema, Reports rash, Reports skin pain and Reports skin swelling PFSH <Lory Hlil NP - Last Filed: 07/03/22 16:13> All Active Problems (Updated 07/02/22 @ 20:07 by Lory Hill NP) Contact dermatitis (Acute) Cellulitis (Acute) Status post arthroscopy of left shoulder (Acute 11/02/21) Massive rotator cuff repair, biceps tenodesis, extensive debridement and subacromial decompression Dr. York Syncope (Acute) Chest pain (Acute) Ventricular tachycardia (Acute) Abnormal findings diagnostic imaging of heart and coronary circulation (Acute) Right shoulder pain (Acute) Erectile dysfunction (Acute) Dyshidrotic foot dermatitis (Acute) Traumatic tear of left rotator cuff (Acute ~04/2021) Tendinitis of long head of biceps brachii of left shoulder (Acute) Bursitis of left shoulder (Acute) Syncope (Chronic) Hyperlipidemia (Acute) Thrombocytosis (Acute) Medical History Amputation of right great toe Dental caries (10/23/17) H/O ventricular tachycardia pt. states his PCP too much caffeine triggered it History of tobacco use Surgical History S/P arthroscopy of right shoulder shoulder surgery left Family History Mother Dementia Father Essential hypertension Renal failure Brother MVA (motor vehicle accident) Brother No problems noted. Brother No problems noted. Brother No problems noted. Social History Smoking/Tobacco Use Status: Former Tobacco Use Quit Date: 08/11/20 Tobacco: How many years used: 35 Smoking risk assessment performed?: Yes Alcohol Intake: current Alcohol Intake frequency: a few times a month Alcohol type: beer Drug use: Occasionally Substance use type: marijuana Current gender identity: male Do you feel safe at home: Yes Do you feel safe in your relationship?: Yes Exam <Lory Hill NP - Last Filed: 07/03/22 16:13> Skin Other: bilateral feet with dry crusty areas, erythema mostly around toes and dorsum of feet most consistent with contact dermatitis (fire red), with some possible cellulitis. left much greater than right. minimal swelling to area. crusty dry skin with scabs noted to hands and wrists, no erythema noted there. old healed amputation of right great toe, Course <Lory Hill NP - Last Filed: 07/03/22 16:13> Vital Signs Vital signs: Vital Signs Temperature 36.3 C L 07/02/22 19:10 Pulse 80 07/02/22 19:10 Respiratory Rate 16 07/02/22 19:10 Blood Pressure 127/80 07/02/22 19:10 Pulse Oximetry 97 07/02/22 19:10 Temperature 36.3 C L 07/02/22 19:10 Temperature Source Temporal Artery Scan 07/02/22 19:10 Pulse 80 07/02/22 19:10 Respiratory Rate 16 07/02/22 19:10 Respiratory Effort 07/02/22 19:10 Blood Pressure 127/80 07/02/22 19:10 Blood Pressure Position Sitting 07/02/22 19:10 Pulse Oximetry 97 07/02/22 19:10 Oxygen Delivery Method Room Air 07/02/22 19:10 Oxygen Flow Rate 0 07/02/22 19:10 Pain Level 10 07/02/22 19:10
[2022-07-02] MEDS: methylPREDNISolone SUCC 125 MG VIAL 60 MG IVP (20:17)
[2022-07-02] MEDS: cefTRIAXone 1 GM/50 ML BAG IVPB (20:17)
[2022-07-02 20:25] LABS: Abs Immature Grans 0.07 10^3/uL (0.0-0.06); Absolute Basophil Count 0.07 10^3/uL (0.0-0.2); Absolute Eosinophil Count 0.27 10^3/uL (0.0-0.7); Absolute Lymphocyte Count 1.52 10^3/uL (1.2-3.4); Absolute Monocyte Count 0.61 10^3/uL (0.1-0.8); Absolute Neutrophil Count 8.91 10^3/uL (1.2-6.7); Basophils % 0.6; Eosinophils % 2.4; HCT 47.1 % (40.0-50.0); Immature Grans % 0.6; Lymphocytes % 13.3; MCH 27.2 pg (27.0-33.0); MCHC 31.8 % (32.0-36.0); MCV 86 fL (80-95); MPV 9.2 fL (8.0-11.0); Monocytes % 5.3; Neutrophils % 77.8; Platelet Count 571 10^3/uL (130-400); RBC 5.51 10^6/uL (4.36-5.78); RDW 18.2 % (11.8-14.1); RDW-SD 56.7 fL; WBC 11.45 10^3/uL (4.4-10.8)
[2022-07-02 20:33] LABS: ESR 17 mm/hr (0-20)
[2022-07-02 20:46] LABS: C-Reactive Protein 0.16 mg/dL (0.0-0.3)
[2022-07-02 21:25] VITALS: BP 104/64; PULSE 76; RESP 16; TEMP 36.4; O2SAT 92
== END 2022-07-02 21:39 | disposition home or self-care (01) ==
PROVIDERS: Emergency Provider Nurse Practitioner Acute Care; PCP Family Medicine
DX: L25.9 Unspecified contact dermatitis, unspecified cause (principal); L03.115 Cellulitis of right lower limb; L03.116 Cellulitis of left lower limb; Z87.891 Personal history of nicotine dependence
CPT/HCPCS: 85652; 96365; 96375; 99284; 85025; 86140; J0696; J2930

== ENCOUNTER 2022-10-04 01:46 | Outpatient (CLI) | payer MEDICARE, MEDICAID, SELFPAY ==
[2022-10-04 12:40] LABS: Abs Immature Grans 0.06 10^3/uL (0.0-0.06); Absolute Basophil Count 0.12 10^3/uL (0.0-0.2); Absolute Eosinophil Count 0.33 10^3/uL (0.0-0.7); Absolute Lymphocyte Count 1.81 10^3/uL (1.2-3.4); Absolute Monocyte Count 0.65 10^3/uL (0.1-0.8); Absolute Neutrophil Count 6.54 10^3/uL (1.2-6.7); Basophils % 1.3; Eosinophils % 3.5; HCT 50.6 % (40.0-50.0); HGB 15.9 g/dL (13.5-17.5); Immature Grans % 0.6; MCH 26.5 pg (27.0-33.0); MCHC 31.4 % (32.0-36.0); MCV 85 fL (80-95); MPV 9.6 fL (8.0-11.0); Monocytes % 6.8; Neutrophils % 68.8; RBC 5.99 10^6/uL (4.36-5.78); RDW 18.1 % (11.8-14.1); RDW-SD 53.6 fL; WBC 9.51 10^3/uL (4.4-10.8)
[2022-10-04 12:52] LABS: Diff Comment Diff Reviewed; Platelet Count 704 10^3/uL (130-400); RBC Morphology Normal
[2022-10-04 13:06] LABS: ALT 24 U/L (16-63); AST 22 U/L (15-37)
== END 2022-10-04 01:47 | disposition home or self-care (01) ==
PROVIDERS: PCP Family Medicine; Visit Provider Dermatology
DX: L30.1 Dyshidrosis [pompholyx] (principal)
CPT/HCPCS: 36415; 85027; 84450; 84460; 85025

== ENCOUNTER → 2023-12-08 13:33 | Outpatient (BNVA) | payer MEDICARE, MEDICAID, SELFPAY | PROVIDERS: PCP Nurse Practitioner Family; Referring Provider Nurse Practitioner Family; Visit Provider Nurse Practitioner Adult Health | DX: G56.21 Lesion of ulnar nerve, right upper limb (principal); G56.01 Carpal tunnel syndrome, right upper limb | CPT/HCPCS: 95909; 99215 ==

== ENCOUNTER → 2024-02-09 14:13 | Outpatient (BNVA) | payer MEDICARE, MEDICAID, SELFPAY | PROVIDERS: PCP Nurse Practitioner Family; Referring Provider Nurse Practitioner Family; Visit Provider Student in an Organized Health Care Education/Training Program | DX: G56.01 Carpal tunnel syndrome, right upper limb (principal); G56.21 Lesion of ulnar nerve, right upper limb | CPT/HCPCS: 99214 ==

== ENCOUNTER 2024-02-09 14:47 | Emergency (ER) | payer MEDICARE, MEDICAID, SELFPAY ==
[2024-02-09 14:51] VITALS: BP 126/59; PULSE 78; RESP 18; TEMP 36.8; O2SAT 97
--- NOTE | 2024-02-09 15:00 | DI.US_ITS ---
Exam(s) US LOWER EXTREMITY VENOUS RT EXAM: US LOWER EXTREMITY VENOUS RT CLINICAL HISTORY: congested venous system, leg pain TECHNIQUE: Grayscale, color, and doppler imaging of the deep venous system of the lower extremity w as performed. COMPARISON: None FINDINGS: There is no evidence of intraluminal thrombus and there is normal compression and augmentation demons trated within the common femoral vein, femoral vein, and popliteal vein. In the ipsilateral calf the interrogated veins also exhibit normal compression/ augmentation properti es. The ipsilateral saphenofemoral junction is patent. Incidentally noted is occlusion of the SFA artery in Sammy's canal. The ipsilateral popliteal arter y is also occluded. IMPRESSION: 1. No evidence of DVT in the right lower extremity. 2. Significant see lateral lower extremity disease as described above. Called by myself to ER provider. DATA REPOSITORY:
--- NOTE | 2024-02-09 15:13 | W.ED.GENAD ---
Discharge Plan Discharge Details Chief Complaint: Vascular Primary Care Provider: Javid Monson ED Provider: Damion Flores Home Meds and New Rx's Prescriptions: No Action aspirin 81 mg capsule 81 mg PO DAILY tadalafil 20 mg tablet 20 mg PO DAILY PRN (Reason: sexual activity) Qty: 30 1RF Rx Instructions: administer approximately 30min before sexual activity; do not use more than 1 dose per 24hrs atorvastatin 40 mg tablet 40 mg PO QPM Qty: 90 3RF nitroglycerin 0.4 mg tablet, sublingual 0.4 mg sublingual Q5 MIN PRN X3 PRN (Reason: chest pain) Qty: 25 0RF triamcinolone acetonide 0.1 % ointment 1 applic TOPICAL BID Qty: 30 2RF Rx Instructions: apply to B heels HPI General Date/Time Provider Initiated Documentation: 02/09/24 14:55. HPI Narrative: 68-year-old male presents with 2 months of intermittent painful burning sensation to anterior aspect of right lower extremity as well as calf of right lower extremity, worse with activity improved after rest. Patient denies history of coronary disease known vascular disease or thromboembolic disease. Patient is also noted dilated veins in his right lower extremity over the last several months. Denies history of irregular heartbeat. Denies history of blood thinner use. Related Data Home Medications Medication Instructions Recorded Confirmed aspirin 81 mg capsule 81 mg PO DAILY 08/15/21 02/09/24 tadalafil 20 mg tablet 20 mg PO DAILY PRN sexual activity 10/05/21 02/09/24 #30 tabs atorvastatin 40 mg tablet 40 mg PO QPM #90 tabs 09/12/23 02/09/24 nitroglycerin 0.4 mg sublingual 0.4 mg sublingual Q5 MIN PRN X3 09/12/23 02/09/24 tablet PRN chest pain #25 tabs triamcinolone acetonide 0.1 % 1 applic topical BID #30 grams 10/15/23 02/09/24 topical ointment Previous Rx's Medication Instructions Recorded tadalafil 20 mg tablet 20 mg PO DAILY PRN sexual activity 10/05/21 #30 tabs atorvastatin 40 mg tablet 40 mg PO QPM #90 tabs 09/12/23 nitroglycerin 0.4 mg sublingual 0.4 mg sublingual Q5 MIN PRN X3 09/12/23 tablet PRN chest pain #25 tabs triamcinolone acetonide 0.1 % 1 applic topical BID #30 grams 10/15/23 topical ointment Allergies Allergy/AdvReac Type Severity Reaction Status Date / Time Sulfa (Sulfonamide Allergy Intermediate Rash Verified 02/09/24 14:53 Antibiotics) General Stated Complaint: Vascular RASTA: 3 Review of Systems Narrative: Review of Systems Constitutional: negative Eyes: negative ENT: negative Cardiovascular: negative Respiratory: negative Gastrointestinal: negative : negative Musculoskeletal: Burning sensation to leg, dilated veins right lower extremity Skin: negative Neurologic: negative Psych: negative Exam Narrative Exam Narrative: Physical Examination General: alert, awake, cooperative, resting comfortably, no acute distress HEENT: normocephalic, atraumatic; PERRL, EOM intact, conjunctiva normal; no nasal discharge; moist mucous membranes, oral and pharyngeal mucosa normal, tolerating secretions Neck: supple, trachea midline; full ROM Chest: normal to inspection Respiratory: normal respiratory effort, speaking in full sentences Skin: no lesions, rashes or trauma appreciated Neuro: AAOx3, normal speech, moving all extremities Extremities: Warm well-perfused right lower extremity, good capillary refill sensation intact full range of motion, no signs of deformity, unable to palpate DP and TP pulses however was able to find DP and TP pulses with ultrasound, no skin ulceration or breakdown, patient does have dilated superficial veins beginning in foot and extending up to thigh, no edema Psych: Appropriate mood and affect Course Vital Signs Vital signs: Vital Signs Temperature 36.8 C 02/09/24 14:51 Pulse 78 02/09/24 14:51 Respiratory Rate 18 02/09/24 14:51 Blood Pressure 126/59 L 02/09/24 14:51 Pulse Oximetry 97 02/09/24 14:51 Temperature 36.8 C 02/09/24 14:51 Pulse 78 02/09/24 14:51 Respiratory Rate 18 02/09/24 14:51 Respiratory Effort Normal, Non-Labored 02/09/24 14:54 Blood Pressure 126/59 L 02/09/24 14:51 Blood Pressure Position Sitting 02/09/24 14:51 Pulse Oximetry 97 02/09/24 14:51 Oxygen Delivery Method Room Air 02/09/24 14:51 Oxygen Flow Rate 0 02/09/24 14:51 Medical Decision Making 68-year-old male presents with 2 months of intermittent painful burning sensation to anterior aspect of right lower extremity as well as calf of right lower extremity, worse with activity improved after rest. Patient denies history of coronary disease known vascular disease or thromboembolic disease. Patient is also noted dilated veins in his right lower extremity over the last several months. Denies history of irregular heartbeat. Denies history of blood thinner use. Warm well-perfused right lower extremity, good capillary refill sensation intact full range of motion, no signs of deformity, unable to palpate DP and TP pulses however was able to find DP and TP pulses with ultrasound, no skin ulceration or breakdown, patient does have dilated superficial veins beginning in foot and extending up to thigh, no edema. History physical consistent with claudication no evidence of acute arterial occlusion given warm well-perfused sensate extremity however patient likely has underlying peripheral vascular disease; with regards to dilated venous system must consider DVT right lower extremity as well, will obtain official ultrasound right lower extremity; patient will likely be given referral to vascular surgical team for further evaluation management of PVD disposition pending results of ultrasound. Patient already taking 81 mg aspirin daily patient already taking atorvastatin daily. Quality:SDOH Health Related Social Needs: Health related social needs transpo insecurity Health related social needs details 9none [facility] All Active Problems (Updated 12/08/23 @ 14:50 by Karen Carpenter) Right carpal tunnel syndrome (Acute) Cubital tunnel syndrome on right (Acute) Carpal tunnel syndrome (Acute) Dermatitis (Acute) Tinea (Acute) History of tobacco use (Chronic) 08/23/22 1/2 ppd Right shoulder strain (Acute) Dermatitis of foot (Acute) Status post arthroscopy of left shoulder (Acute 11/02/21) Massive rotator cuff repair, biceps tenodesis, extensive debridement and subacromial decompression Dr. York Syncope (Acute) Chest pain (Acute) Ventricular tachycardia (Acute) Abnormal findings diagnostic imaging of heart and coronary circulation (Acute) Right shoulder pain (Acute) Erectile dysfunction (Acute) Dyshidrotic foot dermatitis (Acute) Traumatic tear of left rotator cuff (Acute ~04/2021) Tendinitis of long head of biceps brachii of left shoulder (Acute) Bursitis of left shoulder (Acute) Syncope (Chronic) Hyperlipidemia (Acute) Thrombocytosis (Acute) Medical History Amputation of right great toe H/O ventricular tachycardia pt. states his PCP too much caffeine triggered it Dental caries (10/23/17) Surgical History S/P arthroscopy of right shoulder shoulder surgery left Family History Mother Dementia Father Essential hypertension Renal failure Brother MVA (motor vehicle accident) Brother No problems noted. Brother No problems noted. Brother No problems noted. Social History (Updated 09/22/23 @ 13:53 by Kathleen Johnson) Smoking/Tobacco Use Status: Current-Occasional Tobacco Type: cigarettes Tobacco: How many years used: 35 Second Hand Exposure: Yes Smoking risk assessment performed?: Yes Alcohol Intake: former Drug use: Occasionally Substance use type: marijuana Adopted: No Caregiver/Support person: No Foster care: No Housing: apartment Number of Children: 3 number of grandchildren: 6 Education Level: high school Sexually active: Yes Do you think of yourself as: decline to answer Current gender identity: male What is your relationship status?: refused to answer How often do you talk on the phone with friends or family?: decline to answer How often do you get together with friends or relatives?: once per week How often do you attend yarsanism or mu-ism services?: decline to answer Do you belong to any clubs or organized social groups?: no Panel score (0-1 are the most socially isolated patients): 0 What type of physical activity do you participate in: other Details: ice fishing Frequency: 3-4 times per week Ramya/Protestant: None Special ramya needs: No Firearms in home: Yes Firearms unloaded and locked: Yes Do you feel safe at home: Yes Victim of physical abuse: No Victim of emotional abuse: No Victim of sexual abuse: No Would you like helpful sources: No
--- NOTE | 2024-02-09 17:41 | ED.PROG_ITS ---
Date of service: 02/09/24 Time of Service: 17:41 Medical Decision Making As expected from examination patient has significant peripheral artery disease evidence of occlusion at SFA as well as popliteal artery on the right, examination and bedside ultrasound demonstrate patient does have good collateral flow given warm well-perfused sensate mobile extremity with dopplerable DP and TP pulses on bedside ultrasound. Discussed findings with patient who feels comfortable following up with vascular surgery in the coming days to week, would prefer to deputy county counsel with family before any hospitalization. Given strict return precautions for any worsening symptoms that would suggest progressive peripheral artery disease/occlusion. Patient resting comfortably currently examination stable. Given history physical will start patient on clopidogrel in conjunction with his current aspirin regimen Quality:SDOH Health Related Social Needs: Health related social needs transpo insecurity Health related social needs details [id number] Discharge Plan Disposition Patient Disposition: Home Condition: Stable Discharge Details Clinical Impression: Claudication, Peripheral arterial disease Primary Care Provider: Javid Monson ED Provider: Damion Flores Home Meds and New Rx's Prescriptions: New clopidogrel 75 mg tablet 75 mg PO DAILY 30 Days Qty: 30 0RF No Action aspirin 81 mg capsule 81 mg PO DAILY tadalafil 20 mg tablet 20 mg PO DAILY PRN (Reason: sexual activity) Qty: 30 1RF Rx Instructions: administer approximately 30min before sexual activity; do not use more than 1 dose per 24hrs atorvastatin 40 mg tablet 40 mg PO QPM Qty: 90 3RF nitroglycerin 0.4 mg tablet, sublingual 0.4 mg sublingual Q5 MIN PRN X3 PRN (Reason: chest pain) Qty: 25 0RF triamcinolone acetonide 0.1 % ointment 1 applic TOPICAL BID Qty: 30 2RF Rx Instructions: apply to B heels Discharge Instructions Instructions: Peripheral artery disease and claudication Additional Instructions: Please return to the emergency department for any worsening symptoms. We have placed a referral for you to see vascular surgery at [facility] if you have not heard back in the next couple of days to a week please contact us to arrange further follow-up. We have started you on clopidogrel to help ensure good blood flow in your leg. Continue to take your home medications as prescribed.
--- NOTE | 2024-02-09 17:42 | NUR.NOTE ---
Referral given to care management to Vascular surgery [facility] [place]. claudication, PVD RLE in 1-2 weeks.Nursing Note:
--- NOTE | 2024-02-18 10:49 | NUR.NOTE ---
Accessed chart to see when referral to [facility] [place] was sent. Patient states the referral never went through. Care Management notified. Nursing Note:
== END 2024-02-09 17:55 | disposition home or self-care (01) ==
PROVIDERS: Emergency Provider Emergency Medicine; PCP Nurse Practitioner Family
DX: M79.661 Pain in right lower leg (principal); I73.9 Peripheral vascular disease, unspecified
CPT/HCPCS: 123; 99214; 99284; 00123; 93971; 99283

== ENCOUNTER 2024-09-23 10:21 | Outpatient (CLI) | payer MEDICARE, MEDICAID, SELFPAY ==
[2024-09-23 12:36] LABS: Calculated LDL 147 mg/dL (<100); Cholesterol 219 mg/dL (<200); HDL Cholesterol 48 mg/dL (40-60); Triglyceride 121 mg/dL (<150)
[2024-09-24 00:22] LABS: HBs Antibody, Quant <3.1 mIU/mL (See Note); Hep B Surface Ab Negative (See Note); Hepatitis B Core Antibody Negative (Negative); Hepatitis B Surface Antigen Negative (Negative)
[2024-09-24 10:35] LABS: HIV-1/2 Ag & Ab Screen Negative (Negative)
== END 2024-09-23 10:22 | disposition home or self-care (01) ==
LOC: LOS 10:22
PROVIDERS: PCP Nurse Practitioner Family; Referring Provider Family Medicine; Visit Provider Family Medicine
DX: E78.5 Hyperlipidemia, unspecified (principal); Z11.59 Encounter for screening for other viral diseases; Z00.00 Encounter for general adult medical examination without abnormal findings
CPT/HCPCS: 36415; 80061; 86704; 86706; 87340; 87389